=== PATIENT | male | born 1935 | race Caucasian/White ===

== ENCOUNTER 2021-10-13 16:46 | Inpatient (IN) ==
--- NOTE | 2021-10-13 17:12 | Emergency Department Note ---
HPI <Yuli Walker PA-C - Last Filed: 10/13/21 20:48> General Chief complaint: Trauma Stated complaint: Fall Time Seen by Provider: 10/13/21 16:50 Source: EMS Mode of arrival: EMS Limitations: no limitations History of Present Illness HPI Narrative: Narrative: 85-year-old male presents to the emergency department by EMS after ground-level fall at home. He had been working outside most of the day and had been feeling well and then suddenly felt lightheaded and knew that he was falling and then hit the ground. He hit the back of his head on the ground. He did not have loss of consciousness. At this time he has had pain only where he hit his head. He denies any vision changes, dizziness, vomiting. When EMS arrived at patient's house he was generally weak and could not stand up on his own. Patient denies any chest pain, cough, or shortness of breath. He does complain of mild right knee pain. This is been bothering him for a while. He has had a knee replacement. Related Data Previous Rx's Medication Instructions Recorded amlodipine 2.5 mg tablet 2.5 mg PO QDAY #90 tab 11/27/20 ramipril 5 mg capsule 5 mg PO QDAY #90 cap 07/29/21 Allergies Allergy/AdvReac Type Severity Reaction Status Date / Time No Known Drug Allergies Allergy Verified 10/13/21 16:52 Review of Systems <Yuli Walker PA-C - Last Filed: 10/13/21 20:48> ROS ROS Narrative: Narrative: All systems ED: reviewed and negative except as stated. 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 (Acute) Pain of right tibia (Acute) Medicare annual wellness visit, subsequent (Acute) History of hernia repair (Chronic ~1989) Psoriasis (Chronic) Other hammer toe(s) (acquired), 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 History of prostate cancer Hyperlipidemia Irritable bowel syndrome with diarrhea Kidney stones Medicare annual wellness visit, subsequent Mumps Other hammer toe(s) (acquired), right foot Prostate cancer Status post high-dose brachytherapy in July 2017. Continues to follow with urology, Dr. Breen, with PSA every 6 months. Psoriasis Man[facility] at [facility] [place]. He uses multiple strengths different topical steroid medications Surgical History History of hernia repair (~1989) History of prostate surgery (~2017) X'2 S/P cataract surgery (~03/2019) Family History Father Cancer of kidney Prostate cancer, Onset Age: 72 Daughter Mentally disabled Mother Ovarian cancer, Onset Age: 32 Social History Smoking Status: Former smoker Alcohol Intake Frequency: does not drink Substance Use: does not use Exam <Yuli Walker PA-C - Last Filed: 10/13/21 20:48> Narrative Narrative: Narrative: General Limitations: no limitations General appearance: Present alert and in no apparent distress Expanded Head Head image: 1. Cross shaped laceration just through the dermis. Edges are well approximated. 2. Eye Eye: Present PERRL and EOMI ENT ENT: Present mucous membranes moist Neck Neck: Present normal inspection, full ROM and other (Mild tenderness.) Respiratory Respiratory: Present normal lung sounds bilaterally, rales/crackles and wheezes Cardiovascular Cardiovascular: Present regular rate, normal rhythm and normal heart sounds Adbominal Abdominal: Present soft and normal bowel sounds; Absent tenderness Extremities Extremities: Present other (Well healed scar right knee, FROM, Nontender. Palpa ble dorsalis pedis pulses bilaterally, no calf pain or swelling) Back Back: Present normal inspection; Absent tenderness or spinous process tenderness Neurological Neurological: Present alert, oriented X3, CN II-XII intact and other (Equal strength BUE and BLE) Skin Skin: Present warm (WNL) and dry Course <Yuli Walker PA-C - Last Filed: 10/13/21 20:48> Vital Signs Vital signs: Vital Signs Temperature 97.9 F 10/13/21 16:47 Pulse Rate 70 10/13/21 16:47 Respiratory Rate 17 10/13/21 16:47 Blood Pressure 135/72 10/13/21 16:47 Pulse Oximetry (%) 93 10/13/21 16:47 Temperature 99 F 10/14/21 07:49 Pulse Rate 50 L 10/14/21 04:00 Respiratory Rate 16 10/14/21 07:49 Blood Pressure 111/60 10/14/21 07:49 Pulse Oximetry (%) 93 10/14/21 07:49 MDM <Yuli Walker PA-C - Last Filed: 10/13/21 20:48> MDM Narrative Medical decision making narrative: Narrative: Patient was sent quickly for CT of his head and neck. Labs, EKG, and chest x-ray were ordered. He was treated with IV fluids for hydration. Patient had some nausea and vomiting while in CT scan. He was treated with Zofran [address] scan of the head and neck were read as having no acute abnormalities. Labs were reviewed per the electronic health record. Laceration of the patient's head was cleaned with Hibiclens and saline. It was closed with vanita. Patient was given a tetanus immunization. EKG shows normal sinus rhythm with a rate of 47, no ST segment changes, normal intervals. Unfortunately the patient remained too weak to ambulate. Because of this I spoke with the hospitalist who has agreed to admit him. Lab Data Result diagrams: 10/14/21 05:52 10/14/21 05:52 Labs: Lab Results 10/13/21 10/13/21 10/13/21 Range/Units 17:31 17:31 18:21 WBC 10.4 (4.5-11.0) K/mcL RBC 4.35 L (4.63-6.08) M/mcL Hgb 14.1 (13.7-17.5) g/dL Hct 40.9 (40.1-51.0) % MCV 94.0 (80.0-100.0) fL MCH 32.4 (26.0-34.0) pg MCHC 34.5 (31.0-36.0) g/dL RDW 13.4 (11.5-14.5) % Plt Count 215 (140-440) K/mcL MPV 10.6 H (7.4-10.4) fL Neut % (Auto) 76.8 (38.0-78.0) % Lymph % (Auto) 15.4 L (15.5-49.0) % [place] % (Auto) 6.0 (1.0-12.0) % Eos % (Auto) 1.2 (0.0-7.0) % Baso % (Auto) 0.6 (0.0-2.0) % Lymph # (Auto) 1.60 (1.50-4.80) K/mcL [place] # (Auto) 0.63 (0.10-0.90) K/mcL Eos # (Auto) 0.12 (0.00-0.70) K/mcL Baso # (Auto) 0.06 (0.00-0.30) K/mcL Absolute Neutrophils 8.01 H (1.80-8.00) K/mcL Sodium 143 (133-145) mmol/L Potassium 3.7 (3.3-5.1) mmol/L Chloride 106 (96-108) mmol/L Carbon Dioxide 24 (22-30) mmol/L Anion Gap 13.0 (8.0-16.0) BUN 11 (8-23) mg/dL Creatinine 1.1 (0.7-1.2) mg/dL GFR Calculation 61 Glucose 150 H (70-105) mg/dL Calcium 9.1 (8.6-10.4) mg/dL Total Bilirubin 0.3 (0.1-1.0) mg/dL AST 18 (<40) U/L ALT 12 (<40) U/L Alkaline Phosphatase 63 (39-117) U/L Total Protein 6.6 (5.9-8.4) gm/dL Albumin 4.1 (3.2-5.2) gm/dL Globulin 2.5 (2.2-3.7) gm/dL Albumin/Globulin Ratio 1.6 (1.0-2.3) POC Troponin I 0 L (0.02-0.08) Procedures <Yuli Walker PA-C - Last Filed: 10/13/21 20:48> Laceration Laceration 1: Site: scalp Length of wound repaired (cm): 4 Description: Present stellate and clean Depth: simple, single layer Local Anesthetic: lidocaine 1% Amount of Anesthesia Used (mL): 5 Pre-repair: wound explored and irrigated extensively Skin layer closed with: vanita Number of sutures: 6 Discharge Plan Patient/Caregiver Discharge Instructions Pt seen by TIRE MOLD TESTER/PA only: Yes (Discussed patient with Dr. Ac) Clinical Impression: Weakness, Head injury Patient Disposition: Xfer As Inpt ([facility]) Condition: Fair Discharge Date/Time: 10/13/21 22:00
[2021-10-13] MEDS ORDERED: 0.9 % SODIUM CHLORIDE 1,000 ML IV ONE (17:18)
[2021-10-13] MEDS ORDERED: ONDANSETRON 4 MG/2 ML VIAL IV ONE (17:29)
[2021-10-13] MEDS ORDERED: ONDANSETRON 4 MG/2 ML VIAL ONE (17:39)
[2021-10-13 18:06] LABS: Basophils # (Auto) 0.06 K/mcL (0.00-0.30); Basophils % (Auto) 0.6 % (0.0-2.0); Eosinophils # (Auto) 0.12 K/mcL (0.00-0.70); Eosinophils % (Auto) 1.2 % (0.0-7.0); Hematocrit 40.9 % (40.1-51.0); Hemoglobin 14.1 g/dL (13.7-17.5); Lymphocytes % (Auto) 15.4 % (15.5-49.0); Mean Corpuscular HGB Conc 34.5 g/dL (31.0-36.0); Mean Platelet Volume 10.6 fL (7.4-10.4); Monocytes # (Auto) 0.63 K/mcL (0.10-0.90); Neutrophils % (Auto) 76.8 % (38.0-78.0); Platelet Count 215 K/mcL (140-440); RBC 4.35 M/mcL (4.63-6.08); Red Cell Distribution Width 13.4 % (11.5-14.5); WBC 10.4 K/mcL (4.5-11.0)
[2021-10-13 18:20] LABS: ALT/SGPT 12 U/L (<40); AST/SGOT 18 U/L (<40); Albumin 4.1 gm/dL (3.2-5.2); Albumin/Globulin Ratio 1.6 (1.0-2.3); Alkaline Phosphatase 63 U/L (39-117); Bilirubin,Total 0.3 mg/dL (0.1-1.0); Blood Urea Nitrogen 11 mg/dL (8-23); Calcium 9.1 mg/dL (8.6-10.4); Carbon Dioxide 24 mmol/L (22-30); Chloride 106 mmol/L (96-108); Globulin 2.5 gm/dL (2.2-3.7); Glomerular Filtration Rate 61; Glucose 150 mg/dL (70-105)
--- NOTE | 2021-10-13 18:30 | Cat Scan Report ---
CLINICAL INFORMATION: Trauma COMPARISON: None. TECHNIQUE: 2.5 mm helical slices were obtained in the skull base to vertex. Following reconstruction, axial reformatted images were reviewed at bone and parenchymal windows. The exam was performed using radiation dose optimization techniques including, but not limited to, automated exposure control, adjustment of the mA and/or kV according to patient size and use of iterative reconstruction technique. FINDINGS: The ventricles, sulci, fissures, and cisterns are symmetrically enlarged compatible with moderate age-related atrophy. No extra-axial fluid collections are identified. Mild patchy chronic ischemic changes, in the deep cerebral white matter, are expected for age. There is no hemorrhage, mass effect, or edema. Bone windows show no osseous abnormality. IMPRESSION: Moderate atrophy and chronic ischemic changes in the deep cerebral white matter-expected for age. No acute findings Incidental note: Moderate cerumen seen in the right external auditory meatus. Interpreted and Authenticated by: Jose Barrett 10/13/21
--- NOTE | 2021-10-13 18:31 | XRay Report ---
CLINICAL INFORMATION: Trauma-fall COMPARISON: 07/07/2017 TECHNIQUE: Portable FINDINGS: The heart size, mediastinum and pulmonary vessels are unremarkable. The lungs are clear. There are no effusions. The bones and soft tissues are within normal limits. IMPRESSION: Normal chest. Interpreted and Authenticated by: Jose Barrett 10/13/21
--- NOTE | 2021-10-13 18:57 | Cat Scan Report ---
CLINICAL INFORMATION: Trauma COMPARISON: None. TECHNIQUE: 0.625 mm helical slices were obtained from the skull base through the superior T2 end plate. Following reconstruction, 2.5 mm sagittal, coronal and axial reformations , with and without disc space angling, were processed. The exam was reviewed at bone and soft tissue windows. The exam was performed using radiation dose optimization techniques including, but not limited to, automated exposure control, adjustment of the mA and/or kV according to patient size and use of iterative reconstruction technique. FINDINGS: Sagittal and coronal reformatted images show the cervical spine is anatomically aligned. There is no fracture or other osseous abnormality. The cervical cord is normal in contour and caliber without focal lesion. The soft tissues are normal. The C2-3 and C3-4 disc levels are normal. At C4-5, mild central disc protrusion mildly impinges the anterior thecal sac. At C5-6, mild broad disc spur complex results in mild central canal and minimal bilateral IV foraminal narrowing At C6-7, mild broad disc protrusion minimally impinging the thecal sac The C7-T1 disc level is normal. IMPRESSION: No fracture or post traumatic change. Mild degeneration Interpreted and Authenticated by: Jose Barrett 10/13/21
[2021-10-13] MEDS ORDERED: DIPH,PERTUSS(ACELL),TET VAC/PF 0.5 ML SYRINGE IM ONE (20:44)
[2021-10-13] MEDS ORDERED: MAGNESIUM HYDROXIDE 30 ML ORAL.SUSP PO PRN (21:50)
[2021-10-13] MEDS ORDERED: IPRATROPIUM/ALBUTEROL 3 ML AMPUL.NEB NEB PRN (21:50)
[2021-10-13] MEDS ORDERED: PROCHLORPERAZINE 10 MG/2 ML VIAL IV PRN (21:50)
[2021-10-13] MEDS ORDERED: ACETAMINOPHEN W/CODEINE #3 1 TABLET PO PRN (21:50)
[2021-10-13] MEDS ORDERED: ACETAMINOPHEN 325 MG TABLET PO PRN (21:50)
[2021-10-13] MEDS ORDERED: ONDANSETRON 4 MG/2 ML VIAL IV PRN (21:50)
[2021-10-13] MEDS ORDERED: HYDROcodone/APAP 5/325MG TABLET PO PRN (21:50)
[2021-10-13] MEDS ORDERED: ONDANSETRON 4 MG ODT TABLET SL PRN (21:50)
[2021-10-13] MEDS ORDERED: MELATONIN 3 MG TABLET PO PRN (21:55)
--- NOTE | 2021-10-13 22:00 | Internal Med History&Physical ---
HPI History of Present Illness Patient information: Note initiated : 10/13/21 at 10:00 pm Service Date, if different from initiated Date: [] Patient: Juan Cantrell a 85 y/o M admitted on for Fall. Chief Complaint: Fall at home History of present illness: Mr. Cantrell is a 85 year old M Brought to the ER by the EMS following an episode of syncope This gentleman has history essential hypertension taking ramipril and amlodipine recently his medication dose was increased Patient was mowing the lawn all day today at home and by evening he was putting the grass onto the trash can and lost consciousness and fell backwards and hit his head Upon arrival patient had a 23 cm laceration on his back of the head which was sutured in the ED Underwent CT of the head which was unremarkable During my encounter patient was alert oriented answering questions back to his baseline according to the who was at the bedside His heart rate was irregular appears to be in atrial fibrillation which is new diagnosis for him No acute focal neuro deficit No history suggestive of any seizure episodes Patient appears to be very dehydrated Patient will be admitted for possible cardiac syncope versus vasovagal-plan is to do MRI telemetry monitoring and serial troponin Constitutional Constitutional: Present as per HPI EENT Eyes: Present as per HPI; Absent change in vision, discharge, floaters or loss of peripheral vision Ears: Absent decreased hearing, ear pain or tinnitus Nose, mouth and throat: Present dizziness; Absent change in voice, epistaxis, headache(s) or mouth lesions Cardiovascular Cardiovascular: Absent chest pain at rest, diaphoresis, edema, leg edema or orthopnea Respiratory Respiratory: Absent hemoptysis, snoring, chest congestion or pain with cough Gastrointestinal Gastrointestinal: Absent bloating, coffee ground emesis, diarrhea or early satiety Genitourinary Genitourinary: genital lesions, genital pain, testicular mass and testicular pain Musculoskeletal Musculoskeletal: Present muscle cramps; Absent atrophy or joint swelling Integumentary Integumentary: Present dry skin and lesions; Absent change in pigmentation or erythema Neurological Neurological: Absent burning sensations, disequilibrium, frequent falls, loss of vision, paresthesias, sensory deficit, tremor(s) or other visual disturbances Psychiatric Psychiatric: Absent anxiety, change in appetite, cravings or hallucinations PFSH PFSH All Active Problems (Updated 10/13/21 @ 20:48 by Yuli Walker PA-C) Weakness (Acute) Head injury (Acute) Age-related cognitive decline (Acute) Right hand pain (Acute) Fall (Acute) Facial pain (Acute) 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 (Acute) Pain of right tibia (Acute) Medicare annual wellness visit, subsequent (Acute) History of hernia repair (Chronic ~1989) Psoriasis (Chronic) Other hammer toe(s) (acquired), 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 History of prostate cancer Hyperlipidemia Irritable bowel syndrome with diarrhea Kidney stones Medicare annual wellness visit, subsequent Mumps Other hammer toe(s) (acquired), right foot Prostate cancer Status post high-dose brachytherapy in July 2017. Continues to follow with urology, Dr. Breen, with PSA every 6 months. Psoriasis Man[facility] Dr[facility] Ign[facility] at [facility] in [place]. He uses multiple strengths different topical steroid medications Surgical History History of hernia repair (~1989) History of prostate surgery (~2017) X'2 S/P cataract surgery (~03/2019) Family History Father Cancer of kidney Prostate cancer, Onset Age: 72 Daughter Mentally disabled Mother Ovarian cancer, Onset Age: 32 Social History marital status: smoking status: Former smoker smoking status stop date: 05/25/1964 alcohol intake frequency: does not drink substance use type: does not use MEDS/ALLERGIES Home Medications and Allergies Home Medications Medication Instructions Recorded Confirmed Type amlodipine 2.5 mg tablet 2.5 mg PO QDAY #90 tab 11/27/20 10/13/21 Rx ramipril 5 mg capsule 5 mg PO QDAY #90 cap 07/29/21 10/13/21 Rx Allergies Allergy/AdvReac Type Severity Reaction Status Date / Time No Known Drug Allergies Allergy Verified 10/13/21 16:52 EXAM Constitutional Vitals: Temp Pulse Resp BP Pulse Ox 97.9 F 56 L 19 127/68 93 10/13/21 16:47 10/13/21 21:25 10/13/21 21:25 10/13/21 21:16 10/13/21 21:25 General appearance: average body habitus, cooperative and mild distress Head Additional comments: 2x3 cm laceration back of the head Expanded Head Exam Head exam: Present abrasion and laceration Focused Head Exam Image: 1. Eye Eye exam: Present EOMI Pupils: Present PERRL ENT ENT exam: Present mucous membranes dry and normal exam Expanded ENT Exam Ear exam: Absent auricular hematoma, auricular trauma or external canal tenderness Throat exam: Absent post pharyngeal edema, post pharyngeal erythema, tonsillar e xudate or tonsillomegaly Neck Neck exam: Present full ROM and normal inspection; Absent lymphadenopathy or tenderness Expanded Neck Exam Neck exam: Absent anterior neck swelling, carotid bruit, tenderness or thyroid mass Respiratory Respiratory exam: Present normal respiratory exam; Absent accessory muscle use, respiratory distress or wheezes Cardiovascular Cardiovascular exam: Present bradycardia and irregular rhythm; Absent clicks, +S3, +S4 or systolic murmur GI/Abdominal GI/Abdominal exam: Present normal bowel sounds and soft; Absent distended, h ernia or mass Back Exam Back exam: Present normal inspection and rash noted; Absent CVA tenderness (L), CVA tenderness (R) or muscle spasm Expanded Neurological Exam Neurological exam: Absent ataxia, expressive aphasia, inattentive, memory loss- recent event, memory loss-remote event, protecting the airway, receptive aphasia, total aphasia or tremor Patient oriented to: Present person, place and time Speech: Absent anomia, expressive aphasia, garbled or receptive aphasia Cranial nerves: EOM's intact: Normal, facial palsy with forehead movement: Normal, facial palsy without forehead movement: Normal, facial sensation: Normal , gag reflex: Normal and nystagmus: Normal Cerebellar function: finger to nose: Normal and Romberg: Normal Upper motor neuron: Babinski sign: Normal, [place] neglect: Normal, pronator drift: Normal and sensory extinction: Normal Neuro motor strength exam: LUE: 5, RUE: 5, LLE: 5 and RLE: 5 Coma Scale Eye Opening: Spontaneous Coma Scale Motor Response: Obeys Commands Coma Scale Verbal Response: Oriented Coma Scale Total: 15 Psychiatric Psychiatric exam: Absent agitated, anxious or flat affect Skin Skin exam: Present abrasion and rash DATA Data Completed and Pending Labs: Labs from last 24 hours 10/13/21 10/13/21 10/13/21 18:21 17:31 17:31 WBC 10.4 RBC 4.35 L Hgb 14.1 Hct 40.9 MCV 94.0 MCH 32.4 MCHC 34.5 RDW 13.4 Plt Count 215 MPV 10.6 H Neut % (Auto) 76.8 Lymph % (Auto) 15.4 L [place] % (Auto) 6.0 Eos % (Auto) 1.2 Baso % (Auto) 0.6 Lymph # (Auto) 1.60 [place] # (Auto) 0.63 Eos # (Auto) 0.12 Baso # (Auto) 0.06 Absolute Neutrophils 8.01 H Sodium 143 Potassium 3.7 Chloride 106 Carbon Dioxide 24 Anion Gap 13.0 BUN 11 Creatinine 1.1 GFR Calculation 61 Glucose 150 H Calcium 9.1 Total Bilirubin 0.3 AST 18 ALT 12 Alkaline Phosphatase 63 Total Protein 6.6 Albumin 4.1 Globulin 2.5 Albumin/Globulin Ratio 1.6 POC Troponin I 0 L A/P Narrative A/P Narrative: Vasovagal syncope versus cardiac syncope Dehydration Essential hypertension Atrial fibrillation rate controlled-new diagnosis Bradycardia Plan of Treatment: Possible vasovagal syncope Trend the troponin Cardiac monitoring Outpatient cardiology work-up if troponin remains negative and overnight cardiac monitoring remained negative Consider beta-sue if his heart rate uncontrolled IV hydration MRI to look for any stroke If the work-up is negative need outpatient cardiology follow-up Time Spent With Patient Time: Total time spent is greater than 50% in coordination of care (as documented) at patient's floor/unit and/or counseling patient: Total time spent with greater than 50% in coordination of care (as documented) at patient's floor/unit and/or counseling patient:: Greater than 70 minutes Critical Care Time: No
[2021-10-13] MEDS: 0.9 % SODIUM CHLORIDE 1,000 ML IV SCH (23:02)
[2021-10-13] MEDS: 0.9 % SODIUM CHLORIDE 10 ML SYRINGE IV SCH (23:03)
[2021-10-14] MEDS: 0.9 % SODIUM CHLORIDE 10 ML SYRINGE IV SCH ×3 (05:24→21:47)
[2021-10-14 06:57] LABS: ALT/SGPT 12 U/L (<40); AST/SGOT 15 U/L (<40); Albumin 3.5 gm/dL (3.2-5.2); Albumin/Globulin Ratio 1.5 (1.0-2.3); Alkaline Phosphatase 55 U/L (39-117); Bilirubin,Total 0.5 mg/dL (0.1-1.0); Blood Urea Nitrogen 11 mg/dL (8-23); Calcium 8.5 mg/dL (8.6-10.4); Carbon Dioxide 22 mmol/L (22-30); Chloride 108 mmol/L (96-108); Globulin 2.4 gm/dL (2.2-3.7); Glomerular Filtration Rate 78; Glucose 121 mg/dL (70-105)
--- NOTE | 2021-10-14 07:10 | EKG ---
[facility] Test Date: 2021-10-13 Pat Name: Juan Cantrell Department: ED Room: Gender: Male Assistant Librarian: LENNY : 1935 Requested By: Yuli Walker Order Number: [id number] Reading MD: Joseph Welch Measurements Intervals [place] Rate: 47 P: 44 CA: 169 QRS: -17 QRSD: 87 T: 49 QT: 483 QTc: 427 Interpretive Statements Sinus bradycardia Abnormal R-wave progression, early transition LVH with secondary repolarization abnormality Electronically Signed On 10-14-2021 7:10:05 PDT by Joseph Welch /store/M0/[id number].pdf
[2021-10-14 07:19] LABS: Thyroid Stimulating Hormone 0.35 uIU/mL (0.27-5.01)
[2021-10-14] MEDS: PANTOPRAZOLE 40 MG TABLET PO SCH (07:19)
[2021-10-14 07:26] LABS: Basophils # (Auto) 0.03 K/mcL (0.00-0.30); Basophils % (Auto) 0.3 % (0.0-2.0); Eosinophils # (Auto) 0.03 K/mcL (0.00-0.70); Eosinophils % (Auto) 0.3 % (0.0-7.0); Hematocrit 38.8 % (40.1-51.0); Hemoglobin 13.2 g/dL (13.7-17.5); Lymphocytes # (Auto) 1.24 K/mcL (1.50-4.80); Lymphocytes % (Auto) 11.8 % (15.5-49.0); Mean Cell Volume 94.9 fL (80.0-100.0); Monocytes # (Auto) 0.64 K/mcL (0.10-0.90); Monocytes % (Auto) 6.1 % (1.0-12.0); Neutrophils % (Auto) 81.5 % (38.0-78.0); RBC 4.09 M/mcL (4.63-6.08); Red Cell Distribution Width 13.4 % (11.5-14.5); WBC 10.5 K/mcL (4.5-11.0)
[2021-10-14] MEDS ORDERED: amLODIPine 5 MG TABLET PO SCH (09:00)
[2021-10-14] MEDS ORDERED: RAMIPRIL 2.5 MG CAPSULE PO SCH (09:00)
[2021-10-14] MEDS: DOCUSATE SODIUM 100 MG CAPSULE PO SCH ×2 (09:07→21:46)
[2021-10-14] MEDS: ASPIRIN 81 MG TAB.CHEW CHEWED SCH (09:07)
--- NOTE | 2021-10-14 14:59 | Magnetic Resonance Report ---
CLINICAL INFORMATION: Trauma with weakness nausea and vomiting COMPARISON: Head CT 10/11/2020 TECHNIQUE:Sagittal T1 FLAIR, axial late T2 FLAIR propeller, diffusion, and ADC images were acquired. FINDINGS: The ventricles, sulci, fissures and cisterns are mildly enlarged compatible with moderate age-related atrophy extra-axial fluid collections or mass are appreciated. Patchy chronic senescent ischemic changes in the cerebral white matter expected for age. A 3 mm region of restricted diffusion is seen in the subcortical white matter of the right occipital lobe compatible with an acute nonhemorrhagic lacunar infarct. The signal void in intracerebral arteries, extra-axial cranial nerves, pituitary, orbits and paranasal sinuses are all normal. IMPRESSION: Moderate atrophy and chronic ischemic changes in the cerebral white matter-expected for age. 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
[2021-10-14] MEDS ORDERED: hydrALAZINE 20 MG/ML VIAL IV PRN (15:19)
[2021-10-14] MEDS: 0.9 % SODIUM CHLORIDE 1,000 ML IV SCH (15:21)
[2021-10-14] MEDS ORDERED: SENNOSIDES 1 TABLET PO SCH (21:00)
[2021-10-15] MEDS: 0.9 % SODIUM CHLORIDE 10 ML SYRINGE IV SCH (04:13)
[2021-10-15] MEDS: 0.9 % SODIUM CHLORIDE 1,000 ML IV SCH (05:15)
[2021-10-15 06:30] LABS: Basophils # (Auto) 0.03 K/mcL (0.00-0.30); Basophils % (Auto) 0.3 % (0.0-2.0); Eosinophils # (Auto) 0.07 K/mcL (0.00-0.70); Eosinophils % (Auto) 0.8 % (0.0-7.0); Hematocrit 37.9 % (40.1-51.0); Hemoglobin 12.8 g/dL (13.7-17.5); Lymphocytes # (Auto) 1.05 K/mcL (1.50-4.80); Lymphocytes % (Auto) 11.6 % (15.5-49.0); Mean Cell Volume 96.7 fL (80.0-100.0); Mean Corpuscular HGB Conc 33.8 g/dL (31.0-36.0); Mean Platelet Volume 10.7 fL (7.4-10.4); Monocytes # (Auto) 0.56 K/mcL (0.10-0.90); Monocytes % (Auto) 6.2 % (1.0-12.0); Neutrophils % (Auto) 81.1 % (38.0-78.0); Platelet Count 178 K/mcL (140-440); RBC 3.92 M/mcL (4.63-6.08); Red Cell Distribution Width 13.7 % (11.5-14.5)
[2021-10-15 07:00] LABS: ALT/SGPT 11 U/L (<40); AST/SGOT 17 U/L (<40); Albumin 3.4 gm/dL (3.2-5.2); Albumin/Globulin Ratio 1.5 (1.0-2.3); Alkaline Phosphatase 50 U/L (39-117); Bilirubin,Total 0.4 mg/dL (0.1-1.0); Blood Urea Nitrogen 14 mg/dL (8-23); Calcium 8.3 mg/dL (8.6-10.4); Carbon Dioxide 23 mmol/L (22-30); Chloride 111 mmol/L (96-108); Globulin 2.2 gm/dL (2.2-3.7); Glomerular Filtration Rate 68; Glucose 119 mg/dL (70-105)
[2021-10-15] MEDS: PANTOPRAZOLE 40 MG TABLET PO SCH (07:17)
[2021-10-15] MEDS: ASPIRIN 81 MG TAB.CHEW CHEWED SCH (08:37)
[2021-10-15] MEDS: DOCUSATE SODIUM 100 MG CAPSULE PO SCH (08:37)
[2021-10-15] MEDS ORDERED: ATORVASTATIN 40 MG TABLET PO SCH ×2 (09:00→21:00)
--- NOTE | 2021-10-15 11:32 | Discharge Summary ---
Discharge Provider Provider IMPORTANT FOLLOW-UP INFORMATION FOR PCP: Patient information: Note initiated : 10/15/21 at 11:28 am Service Date, if different from initiated Date: [] Patient: Juan Cantrell 85 y/o M admitted on 10/13/21 for Fall. Chief Complaint: [] Date of admission: 10/13/21 22:00 Discharge date: 10/15/21 Primary care physician: Jose Bates DO Consults: 10/13/21 Consult to Physician [CONS] Stat Comment: Consulting Provider: Bea Dahl Reason For Exam: Physician to Consult COURSE Hospital Course Hospital course: Chief Complaint: Fall at home Mr. Cantrell is a 85 year old M Brought to the ER by the EMS following an episode of syncope This gentleman has history essential hypertension taking ramipril and amlodipine recently his medication dose was increased Patient was mowing the lawn at home and by evening he was putting the grass onto the trash can and lost consciousness and fell backwards and hit his head Upon arrival patient had a 2x3 cm laceration on his back of the head which was sutured in the ED.Underwent CT of the head which was unremarkable During my encounter patient was alert oriented answering questions back to his baseline according to the who was at the bedside His heart rate was irregular appears to be in atrial fibrillation which is new diagnosis for him No acute focal neuro deficit during my initial encounter. No history suggestive of any seizure episodes. Patient appears to be very dehydrated. Patient will be admitted for possible cardiac syncope versus vasovagal-plan is to do MRI telemetry monitoring and serial troponin Patient was admitted and telemetry monitoring underwent MRI and MRI showed a 3 mm subcortical occipital stroke acute or subacute as per the radiology. But patient does not have any focal symptoms and the area of involvement is a less dense area of the brain. Last 36 hours patient being bradycardic mostly in sinus bradycardia occasionally he had episodes of atrial fibrillation rate controlled. Last night patient heart rate go down into the 36-38 range. Patient has been complaining of dizziness and unable to go to the bathroom or walk. He is otherwise very healthy active man. His garnett room worker rhythm strip shows a prolonged pause was 1.8 but mostly in the 1.2-1.6 range in sinus rhythm. Based on my assessment this gentleman most likely has sick sinus syndrome. He is not on any medication that can cause bradycardia he was on amlodipine which I held since admit. I do not think his stroke was the cause of syncope has syncope episode is typical for cardiac and now having active dizziness with a heart rate in the 30s he will benefit from pacemaker placement Discussed with the patient and patient needs to be transferred to higher level of care for consideration of pacemaker placement. Discussed with the [facility] pastoral worker Dr. Santiago and he kindly agreed to accept the patient for further evaluation. Patient's troponin being negative, echocardiogram done results are pending patient was started on atorvastatin 40 mg and continued aspirin did not add a second antiplatelet agent because of the laceration of his scalp and fall Sinus bradycardia -prolonged pause Sick sinus syndrome Patient admitted with a episode of syncope lasted for about 10 minutes History typical for cardiac syncope Initial work-up and troponin negative EKG did not show any ischemic changes showed sinus bradycardia gluer and slicer hand patient had episodes of atrial fibrillation rate controlled Patient being bradycardic for the last 36 hours and the lowest is 36 and the longest pause is 1.8 seconds mostly in the 1.5 seconds range Patient having active dizziness. He is otherwise healthy man do a lot of yard works at home With a heart rate being in the 30s and had an episode of serious syncope. He would definitely benefit from pacemaker placement likely sick sinus syndrome Discussed with the [facility] pastoral worker Dr. Santiago and he kindly agreed evaluate the patient for further management New stroke Patient's MRI showed subcortical 3 mm occipital area stroke acute versus subacute-discussed with the radiologist This is in a less dense area of the brain and no focal deficit upon evaluation I do not think this is causing the syncope. Patient's history was typical for cardiac syncope Started him on atorvastatin 40 mg and continued aspirin Did not start him on a second antiplatelet due to the laceration of the scalp and fall Scalp laceration Suture in the ED Outpatient follow-up Essential hypertension Patient was on ramipril and amlodipine Held about the blood pressure medication due to dizziness and syncope Monitored blood pressure target blood pressure was around 160 due to the stroke Discharge diagnosis: Sick sinus syndrome Time Spent with Patient Time attestation: Total time spent providing and/or coordinating discharge services: EXAM Constitutional Vitals: Temp Pulse Resp BP Pulse Ox 97.1 F 43 L 14 141/72 91 10/15/21 07:25 10/15/21 07:25 10/15/21 07:25 10/15/21 07:25 10/15/21 07:25 General appearance: mild distress Head Additional comments: 2x3 cm scalp laceration no discharge Expanded Head Exam Head exam: Present abrasion and laceration Eye Eye exam: Absent conjunctival injection, EOMI, periorbital swelling or scleral icterus ENT ENT exam: Present mucous membranes moist and normal oropharynx Expanded ENT Exam Ear exam: Absent auricular hematoma or auricular trauma Neck Neck exam: Present full ROM and normal inspection Expanded Neck Exam Neck exam: Absent anterior neck swelling, carotid bruit or tenderness Respiratory Respiratory exam: Present normal respiratory exam; Absent accessory muscle use or respiratory distress Cardiovascular Cardiovascular exam: Present bradycardia; Absent irregular rhythm, JVD, +S3 or +S4 GI/Abdominal GI/Abdominal exam: Present normal bowel sounds and soft; Absent distended Neurological Exam Neurological exam: Present alert, CN II-XII intact, oriented X3 and reflexes normal; Absent altered or motor sensory deficit Discharge Data Data Completed and Pending Labs on day of discharge: Labs from last 24 hours 10/15/21 10/15/21 10/14/21 05:12 05:12 12:40 WBC 9.0 RBC 3.92 L Hgb 12.8 L Hct 37.9 L MCV 96.7 MCH 32.7 MCHC 33.8 RDW 13.7 Plt Count 178 MPV 10.7 H Neut % (Auto) 81.1 H Lymph % (Auto) 11.6 L [place] % (Auto) 6.2 Eos % (Auto) 0.8 Baso % (Auto) 0.3 Lymph # (Auto) 1.05 L [place] # (Auto) 0.56 Eos # (Auto) 0.07 Baso # (Auto) 0.03 Absolute Neutrophils 7.33 Sodium 141 Potassium 4.1 Chloride 111 H Carbon Dioxide 23 Anion Gap 7.0 L BUN 14 Creatinine 1.0 GFR Calculation 68 Glucose 119 H Calcium 8.3 L Magnesium 2.0 Total Bilirubin 0.4 AST 17 ALT 11 Alkaline Phosphatase 50 Troponin T < 0.01 Total Protein 5.6 L Albumin 3.4 Globulin 2.2 Albumin/Globulin Ratio 1.5 Discharge Plan Patient/Caregiver Discharge Instructions Activity: other Diet: NPO Prescriptions: Discontinued amlodipine 2.5 mg tablet 2.5 mg PO QDAY Qty: 90 3RF No Action ramipril 5 mg capsule 5 mg PO QDAY Qty: 90 3RF Follow Up Plan Follow up with: Jose Bates DO [Primary Care Provider] - Patient Disposition: [facility] Plan Goals: Follow-up with cardiology to establish care and work-up syncope Follow-up with the primary care to follow-up on the pending echocardiogram result Hospital Course: Chief Complaint: Fall at home Mr. Cantrell is a 85 year old M Brought to the ER by the EMS following an episode of syncope This gentleman has history essential hypertension taking ramipril and amlodipine recently his medication dose was increased Patient was mowing the lawn at home and by evening he was putting the grass onto the trash can and lost consciousness and fell backwards and hit his head Upon arrival patient had a 2x3 cm laceration on his back of the head which was sutured in the ED.Underwent CT of the head which was unremarkable During my encounter patient was alert oriented answering questions back to his baseline according to the who was at the bedside His heart rate was irregular appears to be in atrial fibrillation which is new diagnosis for him No acute focal neuro deficit during my initial encounter. No history suggestive of any seizure episodes. Patient appears to be very dehydrated. Patient will be admitted for possible cardiac syncope versus vasovagal-plan is to do MRI telemetry monitoring and serial troponin Patient was admitted and telemetry monitoring underwent MRI and MRI showed a 3 mm subcortical occipital stroke acute or subacute as per the radiology. But patient does not have any focal symptoms and the area of involvement is a less dense area of the brain. Last 36 hours patient being bradycardic mostly in sinus bradycardia occasionally he had episodes of atrial fibrillation rate controlled. Last night patient heart rate go down into the 36-38 range. Patient has been complaining of dizziness and unable to go to the bathroom or walk. He is otherwise very healthy active man. His garnett room worker rhythm strip shows a prolonged pause was 1.8 but mostly in the 1.2-1.6 range in sinus rhythm. Based on my assessment this gentleman most likely has sick sinus syndrome. He is not on any medication that can cause bradycardia he was on amlodipine which I held since admit. I do not think his stroke was the cause of syncope has syncope episode is typical for cardiac and now having active dizziness with a heart rate in the 30s he will benefit from pacemaker placement Discussed with the patient and patient needs to be transferred to higher level of care for consideration of pacemaker placement. Discussed with the [facility] pastoral worker Dr. Santiago and he kindly agreed to accept the patient for further evaluation. Patient's troponin being negative, echocardiogram done results are pending patient was started on atorvastatin 40 mg and continued aspirin did not add a second antiplatelet agent because of the laceration of his scalp and fall Sinus bradycardia -prolonged pause cardiac syncope Patient admitted with a episode of syncope lasted for about 10 minutes History typical for cardiac syncope Initial work-up and troponin negative EKG did not show any ischemic changes showed sinus bradycardia gluer and slicer hand patient had episodes of atrial fibrillation rate controlled Patient being bradycardic for the last 36 hours and the lowest is 36 and the longest pause is 1.8 seconds mostly in the 1.5 seconds range Patient having active dizziness. He is otherwise healthy man do a lot of yard works at home With a heart rate being in the 30s and had an episode of serious syncope. He would definitely benefit from pacemaker placement likely sick sinus syndrome Discussed with the [facility] pastoral worker Dr. Santiago and he kindly agreed evaluate the patient for further management New stroke Patient's MRI showed subcortical 3 mm occipital area stroke acute versus subacute-discussed with the radiologist This is in a less dense area of the brain and no focal deficit upon evaluation I do not think this is causing the syncope. Patient's history was typical for cardiac syncope Started him on atorvastatin 40 mg and continued aspirin Did not start him on a second antiplatelet due to the laceration of the scalp and fall Scalp laceration Suture in the ED Outpatient follow-up Essential hypertension Patient was on ramipril and amlodipine Held about the blood pressure medication due to dizziness and syncope Monitored blood pressure target blood pressure was around 160 due to the stroke Prognosis: Fair Rehab Potential: Fair I certify that the patient requires SNF services: No Overall status at discharge: patient is back to baseline Discharge Orders: Discharge Order (Routine); Ordered 10/15/21 Ordered By: Bea Dahl
== END 2021-10-15 14:06 | disposition short-term general hospital (02) | DRG 308 ==
LOC: ED 16:46 → MEDSUR 16:46
PROVIDERS: ADMIT Internal Medicine; ATTEND Internal Medicine

== ENCOUNTER 2022-07-06 13:05 | Inpatient (IN) ==
[2022-07-06] MEDS ORDERED: ONDANSETRON 4 MG/2 ML VIAL IV ONE (13:26)
[2022-07-06] MEDS ORDERED: LACTATED RINGERS 1,000 ML IV ONE (13:26)
[2022-07-06] MEDS ORDERED: ACETAMINOPHEN 325 MG TABLET PO ONE (13:34)
[2022-07-06 13:52] LABS: POC Calcium, Ionized 1.13 (1.16-1.32); POC Creatinine 0.9 (0.6-1.2); POC Potassium 3.9 (3.3-5.1)
[2022-07-06 14:06] LABS: Basophils # (Auto) 0.06 K/mcL (0.00-0.30); Basophils % (Auto) 0.6 % (0.0-2.0); Eosinophils # (Auto) 0 K/mcL (0.00-0.70); Eosinophils % (Auto) 0 % (0.0-7.0); Hematocrit 41.8 % (40.1-51.0); Hemoglobin 14.4 g/dL (13.7-17.5); Lymphocytes % (Auto) 7.3 % (15.5-49.0); Mean Cell Volume 94.8 fL (80.0-100.0); Mean Corpuscular HGB Conc 34.4 g/dL (31.0-36.0); Mean Platelet Volume 10.9 fL (8.8-12.5); Monocytes % (Auto) 9.3 % (1.0-12.0); Neutrophils % (Auto) 82.4 % (38.0-78.0); Platelet Count 188 K/mcL (140-440); RBC 4.41 M/mcL (4.63-6.08); Red Cell Distribution Width 13.2 % (11.5-14.5); WBC 9.7 K/mcL (4.5-11.0)
--- NOTE | 2022-07-06 14:18 | XRay Report ---
INDICATION: FEVER UNCLEAR SOURCE TECHNIQUE: AP portable semiupright chest x-ray COMPARISON: Previous chest x-rays dated 10/13/2021, 07/07/2017, 03/03/2008 FINDINGS: Lungs:Lungs are negative. No focal pulmonary parenchymal infiltrate or mass Heart, vascular:No significant cardiomegaly. Pulmonary vascularity is normal. No pulmonary edema or pulmonary congestion Mediastinum, kendall:No mediastinal widening. No hilar mass Pleura:No pleural fluid. No pleural-based mass or calcification Skeletal:Negative. IMPRESSION: Negative AP chest x-ray Interpreted and Authenticated by: Jose Villanueva 07/06/22
[2022-07-06] MEDS ORDERED: OSELTAMIVIR PHOSPHATE 75 MG CAPSULE PO ONE (14:40)
--- NOTE | 2022-07-06 14:43 | Emergency Department Note ---
HPI General Chief complaint: Weakness Stated complaint: weakness Time Seen by Provider: 07/06/22 13:08 Source: EMS Mode of arrival: EMS Limitations: physical limitation History of Present Illness HPI Narrative: Narrative: This is a 86-year-old male otherwise healthy presents to the emergency department with vomiting, fevers and altered mentation. History is obtained from EMS report, limited from patient given his current status. reports that yesterday he was weak and fell to the ground he did not hit his head EMS was called to help get him up. Today the patient has been confused unable to stand, febrile. EMS was called she was sent here for further evaluation. The states that a few days ago she had a sore throat but had recovered quickly without any major issues. There has been no other sick contacts. No diarrhea. Has been nonbloody. Related Data Home Medications Medication Instructions Recorded Confirmed aspirin 81 mg chewable tablet 81 mg PO QDAY 10/28/21 07/09/22 Previous Rx's Medication Instructions Recorded amlodipine 2.5 mg tablet 2.5 mg PO QDAY #90 tabs 01/20/22 ramipril 5 mg capsule 5 mg PO QDAY #90 caps 01/20/22 atorvastatin 40 mg tablet 40 mg PO QHS #90 tabs 06/16/22 Allergies Allergy/AdvReac Type Severity Reaction Status Date / Time No Known Drug Allergies Allergy Verified 07/06/22 13:19 Review of Systems ROS ROS Narrative: Narrative: All systems ED: reviewed and negative except as stated. [facility] Narrative Patient History Narrative: Narrative: Medical/Surgical/Family History All Active Problems (Updated 07/10/22 @ 07:07 by Miguelangel Varghese MD) COVID-19 (Acute) Influenza A (Acute) Stage II pressure ulcer of sacral region (Acute) Acute deep vein thrombosis (DVT) of left lower extremity (Acute) Edema of left lower extremity (Acute) CVA (cerebral vascular accident) (Acute) Arrhythmia (Acute) Sinus bradycardia (Acute) Syncope and collapse (Acute) Weakness (Acute) Head injury (Acute) Age-related cognitive decline (Acute) Right hand pain (Acute) Fall (Acute) Facial pain (Acute) 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 (Acute) Pain of right tibia (Acute) Medicare annual wellness visit, subsequent (Acute) History of hernia repair (Chronic ~1989) Psoriasis (Chronic) Other hammer toe(s) (acquired), 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 History of prostate cancer Hyperlipidemia Irritable bowel syndrome with diarrhea Kidney stones Medicare annual wellness visit, subsequent Mumps Other hammer toe(s) (acquired), right foot Prostate cancer Status post high-dose brachytherapy in July 2017. Continues to follow with urology, Dr. Breen, with PSA every 6 months. Psoriasis Man[facility] Dr[facility] at [facility] [place]. He uses multiple strengths different topical steroid medications Surgical History History of hernia repair (~1989) History of prostate surgery (~2017) X'2 S/P cataract surgery (~03/2019) Family History Father Cancer of kidney Prostate cancer, Onset Age: 72 Daughter Mentally disabled Mother Ovarian cancer, Onset Age: 32 Social History Smoking Status: Former smoker Alcohol Intake Frequency: does not drink Substance Use: does not use Exam Narrative Narrative: Narrative: Vital signs noted General: Somnolent but easily arousable appears acutely ill HEENT: NCAT PERRL EOMI. No conjunctivitis. Membranes moist. Neck: Supple, trachea midline Cardiovascular: RRR. No murmur. No rubs. No gallops. Respiratory: No respiratory distress. Breath sounds equal. Lungs clear. Gastrointestinal: Soft. No tenderness Musculoskeletal: No pain. No soft tissue swelling. Good ROM. No signs injury Skin: Warm. Dry. No rash Neurologic: Alert and oriented x3 moves all extremities equally and fully, speech is fluent face is symmetric General Limitations: physical limitation Course Vital Signs Vital signs: Vital Signs Temperature 101.5 F H 07/06/22 13:16 Pulse Rate 85 07/06/22 13:16 Respiratory Rate 18 07/06/22 13:16 Blood Pressure 155/75 07/06/22 13:16 Pulse Oximetry (%) 92 07/06/22 13:16 Oxygen Delivery Method Room Air 07/06/22 13:16 Temperature 98.0 F 07/09/22 17:05 Pulse Rate 56 L 07/09/22 17:05 Respiratory Rate 18 07/09/22 17:05 Blood Pressure 149/67 07/09/22 17:05 Pulse Oximetry (%) 95 07/09/22 17:05 Oxygen Delivery Method Room Air 07/09/22 17:05 Oxygen Flow Rate (L/min) 0.5 07/07/22 22:50 MDM MDM Narrative Medical decision making narrative: Narrative: Patient presents to the emergency department with fevers nausea vomiting altered mentation. He is protecting his airway he otherwise has no specific complaints. History is obtained from patient and his and EMS report. His CBC does not show any evidence of leukocytosis, his chemistry is without significant or explanatory derangements I have reviewed all of these labs urinalysis not consistent with infection. His COVID and influenza a test is positive patient was given Tamiflu in the emergency department he was also given 1 L of intravenous fluids and 4 mg of Zofran. Given patient's age multiple viral infections inability to care for himself acutely or his 's ability to care for him have spoke with the hospitalist who has agreed to admit the patient for antivirals IV fluid repletion and oxygen monitoring. Lab Data 07/06/22 13:25 Labs: Lab Results 07/06/22 07/06/22 07/06/22 Range/Units 13:25 13:25 13:25 WBC 9.7 (4.5-11.0) K/mcL RBC 4.41 L (4.63-6.08) M/mcL Hgb 14.4 (13.7-17.5) g/dL Hct 41.8 (40.1-51.0) % POC Hct (41-55) MCV 94.8 (80.0-100.0) fL MCH 32.7 (26.0-34.0) pg MCHC 34.4 (31.0-36.0) g/dL RDW 13.2 (11.5-14.5) % Plt Count 188 (140-440) K/mcL MPV 10.9 (8.8-12.5) fL Immature Gran % (Auto) 0.4 (0.0-0.5) % Neut % (Auto) 82.4 H (38.0-78.0) % Lymph % (Auto) 7.3 L (15.5-49.0) % Hendricks % (Auto) 9.3 (1.0-12.0) % Eos % (Auto) 0 (0.0-7.0) % Baso % (Auto) 0.6 (0.0-2.0) % Lymph # (Auto) 0.70 L (1.50-4.80) K/mcL Hendricks # (Auto) 0.90 (0.10-0.90) K/mcL Eos # (Auto) 0 (0.00-0.70) K/mcL Baso # (Auto) 0.06 (0.00-0.30) K/mcL Immature Gran # 0.04 (0.00-0.05) K/mcl Absolute Neutrophils 7.95 (1.80-8.00) K/mcL POC VBG pH (7.32-7.42) POC VBG pCO2 at Temp (41-51) POC VBG pO2 (25-40) POC VBG HCO3 (24-28) POC VBG Total CO2 (25-29) POC Venous O2 Sat (40-70) POC VBG Base Excess (-2-2) VBG Lactic Acid (0.5-2) POC Sodium (133-145) POC Potassium (3.3-5.1) POC Chloride (96-108) POC Total CO2 (22-30) POC BUN (6-20) POC Creatinine (0.6-1.2) POC Glucose (70-105) POC WB Ioniz Calcium (1.16-1.32) Total Bilirubin 0.7 (0.1-1.0) mg/dL Direct Bilirubin < 0.2 (0-0.3) mg/dL AST 15 (<40) U/L ALT 13 (<40) U/L Alkaline Phosphatase 82 (39-117) U/L Total Protein 6.9 (5.9-8.4) gm/dL Albumin 4.1 (3.2-5.2) gm/dL Globulin 2.8 (2.2-3.7) gm/dL Lipase 15 (7-60) U/L Procalcitonin 0.12 H (<0.10) ng/mL Urine Color Urine Appearance (Clear) Urine pH (5.0-9.0) Ur Specific Cumming (1.000-1.035) Urine Protein (Negative) mg/dL Urine Glucose (UA) (Negative) mg/dL Urine Ketones (Negative) mg/dL Urine Occult Blood (Negative) kaylie/mcL Urine Nitrate (Negative) Urine Bilirubin (Negative) mg/dL Urine Urobilinogen mg/dL Ur Leukocyte Esterase (Negative) /uL Urine RBC (0-3) /hpf Urine WBC (0-4) /hpf Ur Squamous Epith Cells (0-4) /hpf Urine Bacteria (0) /hpf Urine Mucus (None) /hpf Ur Culture Indicated? POC Troponin I (0.00-0.08) 07/06/22 07/06/22 07/06/22 Range/Units 13:37 13:38 13:39 WBC (4.5-11.0) K/mcL RBC (4.63-6.08) M/mcL Hgb (13.7-17.5) g/dL Hct (40.1-51.0) % POC Hct 42.0 (41-55) MCV (80.0-100.0) fL MCH (26.0-34.0) pg MCHC (31.0-36.0) g/dL RDW (11.5-14.5) % Plt Count (140-440) K/mcL MPV (8.8-12.5) fL Immature Gran % (Auto) (0.0-0.5) % Neut % (Auto) (38.0-78.0) % Lymph % (Auto) (15.5-49.0) % Hendricks % (Auto) (1.0-12.0) % Eos % (Auto) (0.0-7.0) % Baso % (Auto) (0.0-2.0) % Lymph # (Auto) (1.50-4.80) K/mcL Hendricks # (Auto) (0.10-0.90) K/mcL Eos # (Auto) (0.00-0.70) K/mcL Baso # (Auto) (0.00-0.30) K/mcL Immature Gran # (0.00-0.05) K/mcl Absolute Neutrophils (1.80-8.00) K/mcL POC VBG pH 7.41 (7.32-7.42) POC VBG pCO2 at Temp 36.6 L (41-51) POC VBG pO2 38 (25-40) POC VBG HCO3 23.1 L (24-28) POC VBG Total CO2 24.0 L (25-29) POC Venous O2 Sat 73.0 H (40-70) POC VBG Base Excess -2.0 (-2-2) VBG Lactic Acid 1.6 (0.5-2) POC Sodium 138 (133-145) POC Potassium 3.9 (3.3-5.1) POC Chloride 103 (96-108) POC Total CO2 24.0 (22-30) POC BUN 12 (6-20) POC Creatinine 0.9 (0.6-1.2) POC Glucose 142 H (70-105) POC WB Ioniz Calcium 1.13 L (1.16-1.32) Total Bilirubin (0.1-1.0) mg/dL Direct Bilirubin (0-0.3) mg/dL AST (<40) U/L ALT (<40) U/L Alkaline Phosphatase (39-117) U/L Total Protein (5.9-8.4) gm/dL Albumin (3.2-5.2) gm/dL Globulin (2.2-3.7) gm/dL Lipase (7-60) U/L Procalcitonin (<0.10) ng/mL Urine Color Urine Appearance (Clear) Urine pH (5.0-9.0) Ur Specific Cumming (1.000-1.035) Urine Protein (Negative) mg/dL Urine Glucose (UA) (Negative) mg/dL Urine Ketones (Negative) mg/dL Urine Occult Blood (Negative) kaylie/mcL Urine Nitrate (Negative) Urine Bilirubin (Negative) mg/dL Urine Urobilinogen mg/dL Ur Leukocyte Esterase (Negative) /uL Urine RBC (0-3) /hpf Urine WBC (0-4) /hpf Ur Squamous Epith Cells (0-4) /hpf Urine Bacteria (0) /hpf Urine Mucus (None) /hpf Ur Culture Indicated? POC Troponin I < 0.02 (0.00-0.08) 07/06/22 Range/Units 15:35 WBC (4.5-11.0) K/mcL RBC (4.63-6.08) M/mcL Hgb (13.7-17.5) g/dL Hct (40.1-51.0) % POC Hct (41-55) MCV (80.0-100.0) fL MCH (26.0-34.0) pg MCHC (31.0-36.0) g/dL RDW (11.5-14.5) % Plt Count (140-440) K/mcL MPV (8.8-12.5) fL Immature Gran % (Auto) (0.0-0.5) % Neut % (Auto) (38.0-78.0) % Lymph % (Auto) (15.5-49.0) % Hendricks % (Auto) (1.0-12.0) % Eos % (Auto) (0.0-7.0) % Baso % (Auto) (0.0-2.0) % Lymph # (Auto) (1.50-4.80) K/mcL Hendricks # (Auto) (0.10-0.90) K/mcL Eos # (Auto) (0.00-0.70) K/mcL Baso # (Auto) (0.00-0.30) K/mcL Immature Gran # (0.00-0.05) K/mcl Absolute Neutrophils (1.80-8.00) K/mcL POC VBG pH (7.32-7.42) POC VBG pCO2 at Temp (41-51) POC VBG pO2 (25-40) POC VBG HCO3 (24-28) POC VBG Total CO2 (25-29) POC Venous O2 Sat (40-70) POC VBG Base Excess (-2-2) VBG Lactic Acid (0.5-2) POC Sodium (133-145) POC Potassium (3.3-5.1) POC Chloride (96-108) POC Total CO2 (22-30) POC BUN (6-20) POC Creatinine (0.6-1.2) POC Glucose (70-105) POC WB Ioniz Calcium (1.16-1.32) Total Bilirubin (0.1-1.0) mg/dL Direct Bilirubin (0-0.3) mg/dL AST (<40) U/L ALT (<40) U/L Alkaline Phosphatase (39-117) U/L Total Protein (5.9-8.4) gm/dL Albumin (3.2-5.2) gm/dL Globulin (2.2-3.7) gm/dL Lipase (7-60) U/L Procalcitonin (<0.10) ng/mL Urine Color Lt. yellow Urine Appearance Clear (Clear) Urine pH 7.0 (5.0-9.0) Ur Specific Cumming 1.020 (1.000-1.035) Urine Protein 30 A (Negative) mg/dL Urine Glucose (UA) Negative (Negative) mg/dL Urine Ketones Trace A (Negative) mg/dL Urine Occult Blood Trace-intact A (Negative) kaylie/mcL Urine Nitrate Negative (Negative) Urine Bilirubin Negative (Negative) mg/dL Urine Urobilinogen Normal mg/dL Ur Leukocyte Esterase Negative (Negative) /uL Urine RBC 8 H (0-3) /hpf Urine WBC 3 (0-4) /hpf Ur Squamous Epith Cells 0 (0-4) /hpf Urine Bacteria None (0) /hpf Urine Mucus Few A (None) /hpf Ur Culture Indicated? No POC Troponin I (0.00-0.08) ED POC Tests ED POC Tests: NATALIIA - Influenza A Positive NATALIIA - Influenza B Negative NATALIIA - SARS Antigen Positive Discharge Plan Patient/Caregiver Discharge Instructions Pt seen by [employer]/PA only: No Clinical Impression: COVID-19, Influenza A Activity: increase activity as tolerated Patient Disposition: Xfer As Inpt ([facility]) Condition: Fair Discharge Date/Time: 07/06/22 16:40
[2022-07-06 14:51] LABS: ALT/SGPT 13 U/L (<40); AST/SGOT 15 U/L (<40); Albumin 4.1 gm/dL (3.2-5.2); Alkaline Phosphatase 82 U/L (39-117); Bilirubin,Direct < 0.2 mg/dL (0-0.3); Bilirubin,Total 0.7 mg/dL (0.1-1.0); Globulin 2.8 gm/dL (2.2-3.7)
--- NOTE | 2022-07-06 15:52 | Internal Med History&Physical ---
HPI History of Present Illness Patient information: Note initiated : 07/06/22 at 3:38 pm Service Date, if different from initiated Date: [] Patient: Juan Cantrell a 86 y/o M admitted on for weakness. Chief Complaint: [] History of present illness: Mr. Cantrell is a 86 year old M Presents the ED with weakness confusion nausea fevers. Per the a few days ago she was sick with a sore throat but seemed to be improving and then yesterday he became progressively and said he was not feeling well and went to bed but was unsteady getting to bed. Today he was not any better and when he was getting out of bed he started falling and his guided him to the floor. Today he has had increasing weakness and confusion. Has had nausea but no vomiting. Has been unsteady on his feet. Reported fevers and chills. He has a mild cough. No shortness of breath. No diarrhea. Patient evaluated in the ED found to have a fever of 101.5. Mild tachypnea but no tachycardia. Blood pressure mildly elevated. Rapid flu was positive for flu a and COVID was positive as well. But the Cepheid test was negative for flu and positive for COVID. Patient currently on room air with good sats. Chest x-ray unremarkable. Patient started on Tamiflu. And IV fluids. They have not had the COVID booster or the flu vaccine. Review of Systems: Pertinent positives as above. Denies headache/chest or abdominal pain/dyspnea/diarrhea. Remaining 10 point review of system reviewed negative PHYSICAL EXAM: General: Awake but lethargic, No acute Distress Eyes/N/T: EOMI, no scleral icterus, PERRL, dry MM Head/Neck: neck supple, full ROM, normocephalic atraumatic CV: RRR, No murmurs, normal s1/s2 Pulm: Clear b/l, no wheezing/rhonchi/rales, no respiratory distress Abd: soft, nontender, +BS x4 Ext: no clubbing/cyanosis/edema, nontender Neuro: Lethargic and decreased responsiveness, no focal deficits, moves all extremities, CN 2-12 grossly intact, sensations intact b/l upper/lower Psychiatric: Skin: warm/dry, normal color PFSH PFSH All Active Problems (Updated 06/16/22 @ 17:30 by Jose Bates DO) Stage II pressure ulcer of sacral region (Acute) Acute deep vein thrombosis (DVT) of left lower extremity (Acute) Edema of left lower extremity (Acute) CVA (cerebral vascular accident) (Acute) Arrhythmia (Acute) Sinus bradycardia (Acute) Syncope and collapse (Acute) Weakness (Acute) Head injury (Acute) Age-related cognitive decline (Acute) Right hand pain (Acute) Fall (Acute) Facial pain (Acute) 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 (Acute) Pain of right tibia (Acute) Medicare annual wellness visit, subsequent (Acute) History of hernia repair (Chronic ~1989) Psoriasis (Chronic) Other hammer toe(s) (acquired), 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 History of prostate cancer Hyperlipidemia Irritable bowel syndrome with diarrhea Kidney stones Medicare annual wellness visit, subsequent Mumps Other hammer toe(s) (acquired), right foot Prostate cancer Status post high-dose brachytherapy in July 2017. Continues to follow with urology, Dr. Breen, with PSA every 6 months. Psoriasis Man[facility] Dr[facility] Ign[facility] at [facility] [place]. He uses multiple strengths different topical steroid medications Surgical History History of hernia repair (~1989) History of prostate surgery (~2017) X'2 S/P cataract surgery (~03/2019) Family History Father Cancer of kidney Prostate cancer, Onset Age: 72 Daughter Mentally disabled Mother Ovarian cancer, Onset Age: 32 Social History marital status: smoking status: Former smoker smoking status stop date: 05/25/1964 alcohol intake frequency: does not drink substance use type: does not use MEDS/ALLERGIES Home Medications and Allergies Home Medications Medication Instructions Recorded Confirmed Type aspirin 81 mg chewable tablet 81 mg PO QDAY 06/06/22 02/12/23 History amlodipine 2.5 mg tablet 2.5 mg PO QDAY #90 tabs 01/20/22 07/06/22 Rx ramipril 5 mg capsule 5 mg PO QDAY #90 caps 01/20/22 07/06/22 Rx atorvastatin 40 mg tablet 40 mg PO QHS #90 tabs 06/16/22 07/06/22 Rx Allergies Allergy/AdvReac Type Severity Reaction Status Date / Time No Known Drug Allergies Allergy Verified 07/06/22 13:19 EXAM Constitutional Vitals: Temp Pulse Resp BP Pulse Ox O2 Del Method 101.5 F H 65 22 143/55 90 Room Air 07/06/22 13:53 07/06/22 15:01 07/06/22 15:01 07/06/22 15:01 07/06/22 15:01 07/06/22 14:02 DATA Data Completed and Pending Labs: Labs from last 24 hours 07/06/22 07/06/22 07/06/22 13:39 13:38 13:37 WBC RBC Hgb Hct POC Hct 42.0 MCV MCH MCHC RDW Plt Count MPV Immature Gran % (Auto) Neut % (Auto) Lymph % (Auto) Dolores % (Auto) Eos % (Auto) Baso % (Auto) Lymph # (Auto) Dolores # (Auto) Eos # (Auto) Baso # (Auto) Immature Gran # Absolute Neutrophils POC VBG pH 7.41 POC VBG pCO2 at Temp 36.6 L POC VBG pO2 38 POC VBG HCO3 23.1 L POC VBG Total CO2 24.0 L POC Venous O2 Sat 73.0 H POC VBG Base Excess -2.0 VBG Lactic Acid 1.6 POC Sodium 138 POC Potassium 3.9 POC Chloride 103 POC Total CO2 24.0 POC BUN 12 POC Creatinine 0.9 POC Glucose 142 H POC WB Ioniz Calcium 1.13 L Total Bilirubin Direct Bilirubin AST ALT Alkaline Phosphatase Total Protein Albumin Globulin Lipase Procalcitonin POC Troponin I < 0.02 07/06/22 07/06/22 07/06/22 13:25 13:25 13:25 WBC 9.7 RBC 4.41 L Hgb 14.4 Hct 41.8 POC Hct MCV 94.8 MCH 32.7 MCHC 34.4 RDW 13.2 Plt Count 188 MPV 10.9 Immature Gran % (Auto) 0.4 Neut % (Auto) 82.4 H Lymph % (Auto) 7.3 L Dolores % (Auto) 9.3 Eos % (Auto) 0 Baso % (Auto) 0.6 Lymph # (Auto) 0.70 L Dolores # (Auto) 0.90 Eos # (Auto) 0 Baso # (Auto) 0.06 Immature Gran # 0.04 Absolute Neutrophils 7.95 POC VBG pH POC VBG pCO2 at Temp POC VBG pO2 POC VBG HCO3 POC VBG Total CO2 POC Venous O2 Sat POC VBG Base Excess VBG Lactic Acid POC Sodium POC Potassium POC Chloride POC Total CO2 POC BUN POC Creatinine POC Glucose POC WB Ioniz Calcium Total Bilirubin 0.7 Direct Bilirubin < 0.2 AST 15 ALT 13 Alkaline Phosphatase 82 Total Protein 6.9 Albumin 4.1 Globulin 2.8 Lipase 15 Procalcitonin 0.12 H POC Troponin I A/P Narrative A/P Narrative: A: *COVID infection: on room air currently *Sepsis: 2/2 above *Encephalopathy(confusion/lethargy): 2/2 above *Generalized weakness/deconditioning/Falling: *HTN/HLD: P: -given age/comorbidities/moderate dz illness > high-risk for covid progression > start paxlovid, no indication for Dexamethasone/Remdesivir at this point -IVF -Monitor uop, i/o, renal fxn, electrolytes, cbc - -cont home Norvasc/Lisinopril -cont home asa, hold statin while on paxoliv -Home medication reconciliation -PT/OT -CM for placement needs -ppx: Lovenox Time Spent With Patient Time: Total time spent is greater than 50% in coordination of care (as documented) at patient's floor/unit and/or counseling patient: Initial: Total time with patient: 75 - 90 minutes
[2022-07-06 16:28] LABS: Appearance,Urine CLEAR (Clear); Bilirubin,Urine NEGATIVE (Negative); Color,Urine LT. YELLOW; Culture Indicated,Urine No; Glucose,Urine (UA) NEGATIVE (Negative); Ketones,Urine TRACE mg/dL (Negative); Leukocyte Esterase,Urine NEGATIVE /uL (Negative); Mucus,Urine FEW /hpf; Nitrate,Urine NEGATIVE (Negative); Protein,Urine 30 mg/dL (Negative); Urine Blood TRACE-INTACT ery/mcL (Negative); Urine RBC 8 /hpf (0-3); Urine Squamous Epithelial Cell 0 /hpf (0-4); Urine WBC 3 /hpf (0-4); Urobilinogen,Urine Normal
[2022-07-06] MEDS ORDERED: POTASSIUM CHLORIDE 40 MEQ in DEXTROSE 5% IN WATER 500 ML IV PRN (17:13)
[2022-07-06] MEDS ORDERED: SENNOSIDES 1 TABLET PO PRN (17:13)
[2022-07-06] MEDS ORDERED: POTASSIUM CHLORIDE 20 MEQ TABLET PO PRN ×2 (17:13)
[2022-07-06] MEDS ORDERED: ONDANSETRON 4 MG/2 ML VIAL IV PRN (17:13)
[2022-07-06] MEDS ORDERED: hydrALAZINE 20 MG/ML VIAL IV PRN (17:13)
[2022-07-06] MEDS ORDERED: 0.9 % SODIUM CHLORIDE 1,000 ML IV SCH (17:13)
[2022-07-06] MEDS ORDERED: POLYETHYLENE GLYCOL 3350 17 GM PACKET PO PRN (17:13)
[2022-07-06] MEDS ORDERED: IPRATROPIUM/ALBUTEROL 3 ML AMPUL.NEB NEB PRN (17:13)
[2022-07-06] MEDS ORDERED: MAGNESIUM SULFATE 2 GM/50 ML BAG IV PRN (17:13)
[2022-07-06] MEDS ORDERED: OSELTAMIVIR PHOSPHATE 75 MG CAPSULE PO SCH (21:00)
[2022-07-06] MEDS: NIRMATRELVIR/RITONAVIR 1 EACH BOX PO SCH (21:30)
[2022-07-06] MEDS: 0.9 % SODIUM CHLORIDE 10 ML SYRINGE IV SCH (21:31)
[2022-07-07] MEDS: 0.9 % SODIUM CHLORIDE 10 ML SYRINGE IV SCH ×3 (05:45→22:38)
[2022-07-07 06:36] LABS: Basophils # (Auto) 0.02 K/mcL (0.00-0.30); Basophils % (Auto) 0.3 % (0.0-2.0); Eosinophils # (Auto) 0 K/mcL (0.00-0.70); Eosinophils % (Auto) 0 % (0.0-7.0); Hematocrit 39.7 % (40.1-51.0); Hemoglobin 13.2 g/dL (13.7-17.5); Lymphocytes # (Auto) 0.57 K/mcL (1.50-4.80); Lymphocytes % (Auto) 9.3 % (15.5-49.0); Mean Cell Volume 95.2 fL (80.0-100.0); Mean Corpuscular HGB Conc 33.2 g/dL (31.0-36.0); Mean Platelet Volume 10.6 fL (8.8-12.5); Monocytes # (Auto) 0.67 K/mcL (0.10-0.90); Monocytes % (Auto) 10.9 % (1.0-12.0); Neutrophils % (Auto) 79.2 % (38.0-78.0); Platelet Count 162 K/mcL (140-440); RBC 4.17 M/mcL (4.63-6.08); Red Cell Distribution Width 13.5 % (11.5-14.5); WBC 6.1 K/mcL (4.5-11.0)
[2022-07-07 07:33] LABS: ALT/SGPT 11 U/L (<40); AST/SGOT 20 U/L (<40); Albumin 3.2 gm/dL (3.2-5.2); Albumin/Globulin Ratio 1.2 (1.0-2.3); Alkaline Phosphatase 63 U/L (39-117); Bilirubin,Direct < 0.2 mg/dL (0-0.3); Bilirubin,Total 0.5 mg/dL (0.1-1.0); Blood Urea Nitrogen 14 mg/dL (8-23); Calcium 8.2 mg/dL (8.6-10.4); Carbon Dioxide 25 mmol/L (22-30); Chloride 105 mmol/L (96-108); Globulin 2.7 gm/dL (2.2-3.7); Glomerular Filtration Rate 68; Glucose 101 mg/dL (70-105); Lactate Dehydrogenase 186 U/L (135-225); Triglycerides 57 mg/dL (<150); Uric Acid 4.7 mg/dL (2.5-8.0)
--- NOTE | 2022-07-07 07:59 | Internal Med Progress Note ---
SUBJECTIVE Subjective Patient information: Note initiated : 07/07/22 at 7:57 am Service Date, if different from initiated Date: [] Patient: Juan Cantrell a 86 y/o M admitted on 07/06/22 for weakness. Chief Complaint: [] Interval history: History of present illness: Mr. Cantrell is a 86 year old M Presents the ED with weakness confusion nausea fevers. Per the a few days ago she was sick with a sore throat but seemed to be improving and then yesterday he became progressively and said he was not feeling well and went to bed but was unsteady getting to bed. Today he was not any better and when he was getting out of bed he started falling and his guided him to the floor. Today he has had increasing weakness and confusion. Has had nausea but no vomiting. Has been unsteady on his feet. Reported fevers and chills. He has a mild cough. No shortness of breath. No diarrhea. Patient evaluated in the ED found to have a fever of 101.5. Mild tachypnea but no tachycardia. Blood pressure mildly elevated. Rapid flu was positive for flu a and COVID was positive as well. But the Cepheid test was negative for flu and positive for COVID. Patient currently on room air with good sats. Chest x-ray unremarkable. Patient started on Tamiflu. And IV fluids. They have not had the COVID booster or the flu vaccine. Review of Systems: Pertinent positives as above. Denies headache/chest or abdominal pain/dyspnea/diarrhea. Remaining 10 point review of system reviewed negative 07/07 Rapid screen in the ED showed positive flu and COVID but the follow-up Cepheid test only showed COVID-positive, influenza negative. Patient weak and fatigued. Slept okay. Patient desatted in the mid 80s and required oxygen replacement supp. has oc casional cough. We will start dexamethasone and remdesivir. Febrile this morning. Episodes of bradycardia. Hypophosphatemia. Review of Systems: denies headache/fever/chills/nausea/vomiting/chest or abdominal pain/diarrhea. Otherwise see above. PHYSICAL EXAM: General: Awake , No acute Distress Eyes/N/T: EOMI, no scleral icterus, Head/Neck: neck supple, full ROM, CV: RRR, No murmurs, Pulm: Clear b/l, no wheezing/rhonchi/rales, no respiratory distress Abd: soft, nontender, +BS x4 Ext: no clubbing/cyanosis/edema, nontender Neuro: Mildly lethargic, hearing impairment,j no focal deficits, moves all extremities, sensations intact b/l upper/lower Psychiatric: Skin: warm/dry, normal color Constitutional Vitals: Vital Signs Temp Pulse Resp BP Pulse Ox O2 Del Method 100.3 F H 67 21 108/66 93 Room Air 07/07/22 03:11 07/07/22 03:11 07/07/22 03:11 07/07/22 03:11 07/07/22 03:11 07/07/22 03:11 Period Temp Pulse Resp BP Sys/Devine Pulse Ox O2 Del Method O2 Flow Rate Last 24 Hr 99.3 F-101.5 F 52-88 18-28 106-157/49-76 90-97 Room Air-Room Air Intake and Output 07/06/22 07/07/22 07/07/22 19:59 03:59 11:59 Intake Total 1000 1000 Output Total 325 Balance 1000 -325 1000 Weight 81.873 kg Intake & Output: Intake & Output 07/06/22 07/07/22 07/07/22 19:59 03:59 11:59 Intake Total 1000 1000 Output Total 325 Balance 1000 -325 1000 Weight 81.873 kg Intake: IV 1000 1000 Sodium Chloride 0.9% 1,000 ml @ 1000 100 mls/hr IV .Q10H K[facility]AN[facility] Rx#: [id number] Lactated Ringers 1,000 ml @ 1000 Wide Open IV BOLUS ONE Rx#: [id number] Output: Void Amount 325 Other: Urine Appearance Clear Straight Clear Urine Color Yellow Straight Yellow Urine Odor Normal Stool Size Small Stool Color Brown Stool Consistency Normal for Patient Soft # Voids 2 # Bowel Movements 1 OBJ DATA Labs 07/07/22 05:35 07/07/22 05:35 Labs: Abnormal Lab Results 07/07/22 07/07/22 07/06/22 05:35 05:35 15:35 RBC 4.17 L Hgb 13.2 L Hct 39.7 L Neut % (Auto) 79.2 H Lymph % (Auto) 9.3 L Lymph # (Auto) 0.57 L POC VBG pCO2 at Temp POC VBG HCO3 POC VBG Total CO2 POC Venous O2 Sat POC Glucose Calcium 8.2 L POC WB Ioniz Calcium Phosphorus 2.0 L Procalcitonin Urine Protein 30 A Urine Ketones Trace A Urine Occult Blood Trace-intact A Urine RBC 8 H Urine Mucus Few A 07/06/22 07/06/22 07/06/22 13:38 13:37 13:25 RBC Hgb Hct Neut % (Auto) Lymph % (Auto) Lymph # (Auto) POC VBG pCO2 at Temp 36.6 L POC VBG HCO3 23.1 L POC VBG Total CO2 24.0 L POC Venous O2 Sat 73.0 H POC Glucose 142 H Calcium POC WB Ioniz Calcium 1.13 L Phosphorus Procalcitonin 0.12 H Urine Protein Urine Ketones Urine Occult Blood Urine RBC Urine Mucus 07/06/22 13:25 RBC 4.41 L Hgb Hct Neut % (Auto) 82.4 H Lymph % (Auto) 7.3 L Lymph # (Auto) 0.70 L POC VBG pCO2 at Temp POC VBG HCO3 POC VBG Total CO2 POC Venous O2 Sat POC Glucose Calcium POC WB Ioniz Calcium Phosphorus Procalcitonin Urine Protein Urine Ketones Urine Occult Blood Urine RBC Urine Mucus Meds: Medications Acetaminophen (Acetaminophen 325 Mg Tablet) 650 mg PO Q6HP PRN; Protocol PRN Reason: Per Pain Protocol/Fever > 101 Albuterol/Ipratropium (Ipratropium/Albuterol 3 Ml Ampul.Neb) 3 ml NEB Q4HP PRN PRN Reason: Shortness Of Breath Amlodipine Besylate (Amlodipine 5 Mg Tablet) 2.5 mg PO Q48H [facility] Aspirin (Aspirin 81 Mg Tab.Chew) 81 mg PO QDAY [facility] Enoxaparin Sodium (Enoxaparin 40 Mg/0.4 Ml Syringe) 40 mg SQ DAILY [facility] Hydralazine HCl (Hydralazine 20 Mg/Ml Vial) 0 mg IV Q2HP PRN PRN Reason: Hypertension Potassium Chloride 40 meq/ (Dextrose) 520 mls @ 130 mls/hr IV UD PRN PRN Reason: Potassium < 3 Magnesium Sulfate (Magnesium Sulfate) 2 gm in 50 mls @ 50 mls/hr IV UD PRN PRN Reason: Magnesium </= 1.6 Lisinopril (Lisinopril 10 Mg Tablet) 10 mg PO DAILY [facility] Ondansetron HCl (Ondansetron 4 Mg/2 Ml Vial) 4 mg IV Q4HP PRN PRN Reason: Nausea And Vomiting Polyethylene Glycol (Polyethylene Glycol 3350 17 Gm Packet) 17 gm PO DAILYP PRN PRN Reason: Constipation Potassium Chloride (Potassium Chloride 20 Meq Tablet) 40 meq PO UD PRN PRN Reason: Potssium is 3-3.5 Potassium Chloride (Potassium Chloride 20 Meq Tablet) 40 meq PO UD PRN PRN Reason: Potassium < 3 Senna (Sennosides 1 Tablet) 2 tab PO DAILYP PRN PRN Reason: Constipation Sodium Chloride (0.9 % Sodium Chloride 10 Ml Syringe) 10 ml IV Q8 [facility] Last Admin: 07/07/22 05:45 Dose: Not Given A/P Narrative A/P Narrative: A: *COVID infection: *Acute hypoxic respiratory failure: 2/2 above -on 2L NC *Sepsis: 2/2 above -febrile, *Encephalopathy(confusion/lethargy): 2/2 above *Generalized weakness/deconditioning/Falling: *Bradycardia, asymptomatic: monitor, chronic per old records *Hypophos: *HTN/HLD: P: -Dexamethasone/Remdesivir -IVF d/c -Monitor uop, i/o, renal fxn, electrolytes(trend and replace), cbc -monitor inflammatory markers -cont home Norvasc/Lisinopril -cont home asa/statin -PT/OT -CM for placement needs -ppx: Lovenox Time Spent With Patient Time: Total time spent is greater than 50% in coordination of care (as documented) at patient's floor/unit and/or counseling patient: Subsequent: Total time with patient: 50 - 65 Minutes QUALITY Stroke Symptom Onset Unknown: No VTE Deep Vein Thrombosis/Pulmonary Embolism Present on Admission: No
[2022-07-07] MEDS ORDERED: NIRMATRELVIR/RITONAVIR 1 EACH BOX PO SCH (09:00)
[2022-07-07] MEDS ORDERED: REMDESIVIR 200 MG in 0.9 % SODIUM CHLORIDE 250 ML IV ONE (10:00)
[2022-07-07] MEDS: ASPIRIN 81 MG TAB.CHEW PO SCH (10:30)
[2022-07-07] MEDS: ENOXAPARIN 40 MG/0.4 ML SYRINGE SQ SCH (10:30)
[2022-07-07] MEDS: NEUTRA PHOS 1 PACKET PO SCH ×2 (10:30→22:35)
[2022-07-07] MEDS: DEXAMETHASONE 4 MG TABLET PO SCH (10:31)
[2022-07-07] MEDS: ACETAMINOPHEN 325 MG TABLET PO PRN (10:31)
[2022-07-07] MEDS: NIRMATRELVIR/RITONAVIR 1 EACH BOX PO SCH (11:47)
[2022-07-07] MEDS: LISINOPRIL 10 MG TABLET PO SCH (12:17)
[2022-07-07] MEDS ORDERED: TAMSULOSIN 0.4 MG CAPSULE PO ONE ×2 (22:18→22:32)
[2022-07-07] MEDS: ATORVASTATIN 40 MG TABLET PO SCH (22:35)
[2022-07-08] MEDS: 0.9 % SODIUM CHLORIDE 10 ML SYRINGE IV SCH ×3 (05:41→20:00)
--- NOTE | 2022-07-08 07:57 | Internal Med Progress Note ---
SUBJECTIVE Subjective Patient information: Note initiated : 07/08/22 at 7:55 am Service Date, if different from initiated Date: [] Patient: Juan Cantrell a 86 y/o M admitted on 07/06/22 for weakness. Chief Complaint: [] Interval history: History of present illness: Mr. Cantrell is a 86 year old M Presents the ED with weakness confusion nausea fevers. Per the a few days ago she was sick with a sore throat but seemed to be improving and then yesterday he became progressively and said he was not feeling well and went to bed but was unsteady getting to bed. Today he was not any better and when he was getting out of bed he started falling and his guided him to the floor. Today he has had increasing weakness and confusion. Has had nausea but no vomiting. Has been unsteady on his feet. Reported fevers and chills. He has a mild cough. No shortness of breath. No diarrhea. Patient evaluated in the ED found to have a fever of 101.5. Mild tachypnea but no tachycardia. Blood pressure mildly elevated. Rapid flu was positive for flu a and COVID was positive as well. But the Cepheid test was negative for flu and positive for COVID. Patient currently on room air with good sats. Chest x-ray unremarkable. Patient started on Tamiflu. And IV fluids. They have not had the COVID booster or the flu vaccine. Review of Systems: Pertinent positives as above. Denies headache/chest or abdominal pain/dyspnea/diarrhea. Remaining 10 point review of system reviewed negative 07/07 Rapid screen in the ED showed positive flu and COVID but the follow-up Cepheid test only showed COVID-positive, influenza negative. Patient weak and fatigued. Slept okay. Patient desatted in the mid 80s and required oxygen replacement supp. has oc casional cough. We will start dexamethasone and remdesivir. Febrile this morning. Episodes of bradycardia. Hypophosphatemia. 07/08 Patient sit up in his chair eating breakfast. Seems to be doing a bit better. Denying cough and shortness of breath. Hypophosphatemia improving. Trial on room air this morning. Review of Systems: denies headache/fever/chills/nausea/vomiting/chest or abdominal pain/diarrhea. Otherwise see above. PHYSICAL EXAM: General: Awake , No acute Distress Eyes/N/T: EOMI, no scleral icterus, Head/Neck: neck supple, full ROM, CV: RRR, No murmurs, Pulm: Clear b/l, no wheezing/rhonchi/rales, no respiratory distress Abd: soft, nontender, +BS x4 Ext: no clubbing/cyanosis/edema, nontender Neuro: alert, hearing impairment, no focal deficits, moves all extremities, sensations intact b/l upper/lower Psychiatric: Skin: warm/dry, normal color Constitutional Vitals: Vital Signs Temp Pulse Resp BP Pulse Ox O2 Del Method O2 Flow Rate 98.9 F 95 H 18 125/66 92 Room Air 0.5 07/08/22 03:47 07/08/22 03:47 07/08/22 03:47 07/08/22 03:47 07/08/22 03:47 07/08/22 03:47 07/07/22 22:50 Period Temp Pulse Resp BP Sys/Devine Pulse Ox O2 Del Method O2 Flow Rate Last 24 Hr 97.5 F-101.3 F 51-95 16-22 119-131/55-78 92-97 Nasal Cannula- Room Air 0.5-2 Intake and Output 07/07/22 07/08/22 07/08/22 19:59 03:59 11:59 Intake Total 390 250 Output Total 470 575 Balance -80 -325 Weight 81.012 kg Intake & Output: Intake & Output 07/07/22 07/08/22 07/08/22 19:59 03:59 11:59 Intake Total 390 250 Output Total 470 575 Balance -80 -325 Weight 81.012 kg Intake: Nourishment/Supplement quantity 50 (ml) Oral 340 250 Output: Void Amount 470 575 Other: Meal Dinner Percent of Meal Consumed 50% Feeding Ability Needs Supervision Urine Appearance Clear Clear Urine Color Yellow Yellow Urine Odor Normal Stool Size Smear # Voids 4 # of times incontinent of 2 Bowels OBJ DATA Labs 07/07/22 05:35 07/07/22 05:35 Labs: Abnormal Lab Results 07/07/22 07/07/22 07/07/22 05:35 05:35 05:30 RBC 4.17 L Hgb 13.2 L Hct 39.7 L Neut % (Auto) 79.2 H Lymph % (Auto) 9.3 L Lymph # (Auto) 0.57 L POC VBG pCO2 at Temp POC VBG HCO3 POC VBG Total CO2 POC Venous O2 Sat POC Glucose Calcium 8.2 L POC WB Ioniz Calcium Phosphorus 2.0 L C-Reactive Protein 2.00 H Procalcitonin Urine Protein Urine Ketones Urine Occult Blood Urine RBC Urine Mucus 07/06/22 07/06/22 07/06/22 15:35 13:38 13:37 RBC Hgb Hct Neut % (Auto) Lymph % (Auto) Lymph # (Auto) POC VBG pCO2 at Temp 36.6 L POC VBG HCO3 23.1 L POC VBG Total CO2 24.0 L POC Venous O2 Sat 73.0 H POC Glucose 142 H Calcium POC WB Ioniz Calcium 1.13 L Phosphorus C-Reactive Protein Procalcitonin Urine Protein 30 A Urine Ketones Trace A Urine Occult Blood Trace-intact A Urine RBC 8 H Urine Mucus Few A 07/06/22 07/06/22 13:25 13:25 RBC 4.41 L Hgb Hct Neut % (Auto) 82.4 H Lymph % (Auto) 7.3 L Lymph # (Auto) 0.70 L POC VBG pCO2 at Temp POC VBG HCO3 POC VBG Total CO2 POC Venous O2 Sat POC Glucose Calcium POC WB Ioniz Calcium Phosphorus C-Reactive Protein Procalcitonin 0.12 H Urine Protein Urine Ketones Urine Occult Blood Urine RBC Urine Mucus Meds: Medications Acetaminophen (Acetaminophen 325 Mg Tablet) 650 mg PO Q6HP PRN; Protocol PRN Reason: Per Pain Protocol/Fever > 101 Last Admin: 07/07/22 10:31 Dose: 650 mg Albuterol/Ipratropium (Ipratropium/Albuterol 3 Ml Ampul.Neb) 3 ml NEB Q4HP PRN PRN Reason: Shortness Of Breath Amlodipine Besylate (Amlodipine 5 Mg Tablet) 2.5 mg PO DAILY [facility] Aspirin (Aspirin 81 Mg Tab.Chew) 81 mg PO QDAY [facility] Last Admin: 07/07/22 10:30 Dose: 81 mg Atorvastatin Calcium (Atorvastatin 40 Mg Tablet) 40 mg PO QHS [facility] Last Admin: 07/07/22 22:35 Dose: 40 mg Dexamethasone (Dexamethasone 4 Mg Tablet) 6 mg PO DAILY [facility] Last Admin: 07/07/22 10:31 Dose: 6 mg Enoxaparin Sodium (Enoxaparin 40 Mg/0.4 Ml Syringe) 40 mg SQ DAILY [facility] Last Admin: 07/07/22 10:30 Dose: 40 mg Hydralazine HCl (Hydralazine 20 Mg/Ml Vial) 0 mg IV Q2HP PRN PRN Reason: Hypertension Potassium Chloride 40 meq/ (Dextrose) 520 mls @ 130 mls/hr IV UD PRN PRN Reason: Potassium < 3 Magnesium Sulfate (Magnesium Sulfate) 2 gm in 50 mls @ 50 mls/hr IV UD PRN PRN Reason: Magnesium </= 1.6 REMDESIVIR 100 mg/ Sodium (Chloride) 250 mls @ 500 mls/hr IV Q24H [facility] Stop: 07/11/22 09:29 Lisinopril (Lisinopril 10 Mg Tablet) 10 mg PO DAILY [facility] Last Admin: 07/07/22 12:17 Dose: 10 mg Ondansetron HCl (Ondansetron 4 Mg/2 Ml Vial) 4 mg IV Q4HP PRN PRN Reason: Nausea And Vomiting Polyethylene Glycol (Polyethylene Glycol 3350 17 Gm Packet) 17 gm PO DAILYP PRN PRN Reason: Constipation Potassium Chloride (Potassium Chloride 20 Meq Tablet) 40 meq PO UD PRN PRN Reason: Potssium is 3-3.5 Potassium Chloride (Potassium Chloride 20 Meq Tablet) 40 meq PO UD PRN PRN Reason: Potassium < 3 Senna (Sennosides 1 Tablet) 2 tab PO DAILYP PRN PRN Reason: Constipation Sodium Chloride (0.9 % Sodium Chloride 10 Ml Syringe) 10 ml IV Q8 [facility] Last Admin: 07/08/22 05:41 Dose: Not Given Tamsulosin HCl (Tamsulosin 0.4 Mg Capsule) 0.4 mg PO [facility] A/P Narrative A/P Narrative: A: *COVID infection: *Acute hypoxic respiratory failure: 2/2 above -trial on room air this morning *Sepsis: 2/2 above -afebrile o/n *Encephalopathy(confusion/lethargy): 2/2 above, more alert, confusion at times *Likely underlying mild Dementia vs MCI: -MRI Brain last May with moderate atrophy and chronic ischemic changes, 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 *Generalized weakness/deconditioning/Falling: *Bradycardia, asymptomatic: monitor, chronic per old records *Hypophos: *HTN/HLD: P: -Dexamethasone/Remdesivir -neuro checks -IS/Acapella, prn nebs, RT -Monitor uop, i/o, renal fxn, electrolytes(trend and replace), cbc -monitor inflammatory markers -cont home Norvasc/Lisinopril -cont home asa/statin -PT/OT -CM for placement needs -ppx: Lovenox Time Spent With Patient Time: Total time spent is greater than 50% in coordination of care (as documented) at patient's floor/unit and/or counseling patient: Subsequent: Total time with patient: 50 - 65 Minutes QUALITY Stroke Symptom Onset Unknown: No VTE Deep Vein Thrombosis/Pulmonary Embolism Present on Admission: No
[2022-07-08 08:03] LABS: ALT/SGPT 15 U/L (<40); AST/SGOT 28 U/L (<40); Albumin 3.3 gm/dL (3.2-5.2); Albumin/Globulin Ratio 1.2 (1.0-2.3); Alkaline Phosphatase 66 U/L (39-117); Bilirubin,Direct < 0.2 mg/dL (0-0.3); Bilirubin,Total 0.3 mg/dL (0.1-1.0); Blood Urea Nitrogen 21 mg/dL (8-23); Calcium 8.8 mg/dL (8.6-10.4); Carbon Dioxide 24 mmol/L (22-30); Chloride 104 mmol/L (96-108); Globulin 2.8 gm/dL (2.2-3.7); Glomerular Filtration Rate 81; Glucose 146 mg/dL (70-105); Lactate Dehydrogenase 191 U/L (135-225); Phosphorous 2.7 mg/dL (2.5-4.5); Triglycerides 36 mg/dL (<150); Uric Acid 4.6 mg/dL (2.5-8.0)
[2022-07-08] MEDS ORDERED: amLODIPine 5 MG TABLET PO SCH (09:00)
[2022-07-08] MEDS: ASPIRIN 81 MG TAB.CHEW PO SCH (09:38)
[2022-07-08] MEDS: ENOXAPARIN 40 MG/0.4 ML SYRINGE SQ SCH (09:38)
[2022-07-08] MEDS: LISINOPRIL 10 MG TABLET PO SCH (09:39)
[2022-07-08] MEDS: DEXAMETHASONE 4 MG TABLET PO SCH (09:39)
[2022-07-08] MEDS: amLODIPine 5 MG TABLET PO SCH (09:39)
--- NOTE | 2022-07-08 10:37 | EKG ---
[facility] Test Date: 2022-07-07 Pat Name: Juan Cantrell [facility] Gender: Male [employer]ing Machine Operator: : [id number] Requested By: Elgin Ramos Order Number: [id number] Reading MD: Joseph Welch Measurements Intervals [place] Rate: 49 P: 48 TX: 165 QRS: -18 QRSD: 82 T: 77 QT: 456 QTc: 389 Interpretive Statements Sinus bradycardia Atrial premature complexes in couplets LEFT VENTRICULAR HYPERTROPHY with repolarization abnormality Electronically Signed On 07-08-2022 10:37:06 PST by Joseph Welch /[email or web address]/[id number]
[2022-07-08] MEDS: REMDESIVIR 100 MG in 0.9 % SODIUM CHLORIDE 250 ML IV SCH (13:11)
--- NOTE | 2022-07-08 15:25 | Discharge Summary ---
Discharge Provider Provider IMPORTANT FOLLOW-UP INFORMATION FOR PCP: Patient information: Note initiated : 07/08/22 at 3:23 pm Service Date, if different from initiated Date: [] Patient: Juan Cantrell 86 y/o M admitted on 07/06/22 for weakness. Chief Complaint: [] Date of admission: 07/06/22 16:40 Discharge date: 07/09/22 Primary care physician: Jose Bates DO Consults: 07/06/22 Consult to Physician [CONS] Stat Comment: Consulting Provider: Elgin Ramos Reason For Exam: Physician to Consult COURSE Hospital Course Hospital course: History of present illness: Mr. Cantrell is a 86 year old M Presents the ED with weakness confusion nausea fevers. Per the a few days ago she was sick with a sore throat but seemed to be improving and then yesterday he became progressively and said he was not feeling well and went to bed but was unsteady getting to bed. Today he was not any better and when he was getting out of bed he started falling and his guided him to the floor. Today he has had increasing weakness and confusion. Has had nausea but no vomiting. Has been unsteady on his feet. Reported fevers and chills. He has a mild cough. No shortness of breath. No diarrhea. Patient evaluated in the ED found to have a fever of 101.5. Mild tachypnea but no tachycardia. Blood pressure mildly elevated. Rapid flu was positive for flu a and COVID was positive as well. But the Cepheid test was negative for flu and positive for COVID. Patient currently on room air with good sats. Chest x-ray unremarkable. Patient started on Tamiflu. And IV fluids. They have not had the COVID booster or the flu vaccine. Review of Systems: Pertinent positives as above. Denies headache/chest or abdominal pain/dyspnea/diarrhea. Remaining 10 point review of system reviewed negative 07/07 Rapid screen in the ED showed positive flu and COVID but the follow-up Cepheid test only showed COVID-positive, influenza negative. Patient weak and fatigued. Slept okay. Patient desatted in the mid 80s and required oxygen replacement supp. has occasional cough. We will start dexamethasone and remdesivir. Febrile this morning. Episodes of bradycardia. Hypophosphatemia. 07/08 Patient sit up in his chair eating breakfast. Seems to be doing a bit better. Denying cough and shortness of breath. Hypophosphatemia improving. Trial on room air this morning. 07/09 Patient sleeping but awakens easily. Patient doing well on room air. 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 *Generalized weakness/deconditioning/Falling: *Bradycardia, asymptomatic: monitor, chronic per old records *Hypophos: *HTN/HLD: Discharge diagnosis: COVID infection hypoxia sepsis encephalopathy Secondary discharge diagnosis: Dementia generalized weakness deconditioning falling hypertension Time Spent with Patient Time attestation: Total time spent providing and/or coordinating discharge services: Time spent: Greater than 30 minutes EXAM Constitutional Vitals: Temp Pulse Resp BP Pulse Ox O2 Del Method O2 Flow Rate 98.3 F 60 20 124/58 95 Room Air 0.5 07/08/22 12:00 07/08/22 12:00 07/08/22 12:00 07/08/22 12:00 07/08/22 12:00 07/08/22 12:00 07/07/22 22:50 Discharge Data Data Completed and Pending Labs on day of discharge: Labs from last 24 hours 07/08/22 05:33 Sodium 138 Potassium 4.3 Chloride 104 Carbon Dioxide 24 Anion Gap 10.0 BUN 21 Creatinine 0.8 GFR Calculation 81 Glucose 146 H Uric Acid 4.6 Calcium 8.8 Phosphorus 2.7 Magnesium 1.9 Total Bilirubin 0.3 Direct Bilirubin < 0.2 GGT 14 AST 28 ALT 15 Alkaline Phosphatase 66 Lactate Dehydrogenase 191 Total Protein 6.1 Albumin 3.3 Globulin 2.8 Albumin/Globulin Ratio 1.2 Triglycerides 36 Discharge Plan Patient/Caregiver Discharge Instructions Activity: increase activity as tolerated Diet: Regular Diet Prescriptions: Continued amlodipine 2.5 mg tablet 2.5 mg PO QDAY Qty: 90 1RF ramipril 5 mg capsule 5 mg PO QDAY Qty: 90 3RF aspirin 81 mg tablet,chewable 81 mg PO QDAY atorvastatin 40 mg tablet 40 mg PO QHS Qty: 90 3RF Follow Up Plan Follow up with: Jose Bates DO [Primary Care Provider] - Patient Disposition: Xfer As Swing Bed (TS) Prognosis: Fair Rehab Potential: Fair I certify that the patient requires SNF services: Yes Overall status at discharge: patient is progressing back to baseline Discharge Orders: Discharge Order (Routine); Ordered 07/09/22 [facility] Deep Vein Thrombosis/Pulmonary Embolism Present on Admission: No
[2022-07-08] MEDS: ACETAMINOPHEN 325 MG TABLET PO PRN (20:45)
[2022-07-08] MEDS: ATORVASTATIN 40 MG TABLET PO SCH (20:45)
[2022-07-08] MEDS ORDERED: TAMSULOSIN 0.4 MG CAPSULE PO SCH (21:00)
[2022-07-09] MEDS: 0.9 % SODIUM CHLORIDE 10 ML SYRINGE IV SCH ×2 (03:30→12:52)
--- NOTE | 2022-07-09 08:49 | Internal Med Progress Note ---
SUBJECTIVE Subjective Patient information: Note initiated : 07/09/22 at 8:49 am Service Date, if different from initiated Date: [] Patient: Juan Cantrell a 86 y/o M admitted on 07/06/22 for weakness. Chief Complaint: [] Interval history: History of present illness: Mr. aCntrell is a 86 year old M Presents the ED with weakness confusion nausea fevers. Per the a few days ago she was sick with a sore throat but seemed to be improving and then yesterday he became progressively and said he was not feeling well and went to bed but was unsteady getting to bed. Today he was not any better and when he was getting out of bed he started falling and his guided him to the floor. Today he has had increasing weakness and confusion. Has had nausea but no vomiting. Has been unsteady on his feet. Reported fevers and chills. He has a mild cough. No shortness of breath. No diarrhea. Patient evaluated in the ED found to have a fever of 101.5. Mild tachypnea but no tachycardia. Blood pressure mildly elevated. Rapid flu was positive for flu a and COVID was positive as well. But the Cepheid test was negative for flu and positive for COVID. Patient currently on room air with good sats. Chest x-ray unremarkable. Patient started on Tamiflu. And IV fluids. They have not had the COVID booster or the flu vaccine. Review of Systems: Pertinent positives as above. Denies headache/chest or abdominal pain/dyspnea/diarrhea. Remaining 10 point review of system reviewed negative 07/07 Rapid screen in the ED showed positive flu and COVID but the follow-up Cepheid test only showed COVID-positive, influenza negative. Patient weak and fatigued. Slept okay. Patient desatted in the mid 80s and required oxygen replacement supp. has oc casional cough. We will start dexamethasone and remdesivir. Febrile this morning. Episodes of bradycardia. Hypophosphatemia. 07/08 Patient sit up in his chair eating breakfast. Seems to be doing a bit better. Denying cough and shortness of breath. Hypophosphatemia improving. Trial on room air this morning. 07/09 Patient sleeping but awakens easily. Patient doing well on room air. PT eval uation patient likely needs further rehab before going home. Review of Systems: denies headache/fever/chills/nausea/vomiting/chest or abdominal pain/diarrhea. Otherwise see above. PHYSICAL EXAM: General: Awake , No acute Distress Eyes/N/T: EOMI, no scleral icterus, Head/Neck: neck supple, full ROM, CV: RRR, No murmurs, Pulm: Clear b/l, no wheezing/rhonchi/rales, no respiratory distress Abd: soft, nontender, +BS x4 Ext: no clubbing/cyanosis/edema, nontender Neuro: alert, hearing impairment, no focal deficits, moves all extremities, sensations intact b/l upper/lower Psychiatric: Skin: warm/dry, normal color Constitutional Vitals: Vital Signs Temp Pulse Resp BP Pulse Ox O2 Del Method O2 Flow Rate 97.3 F 57 L 18 120/70 91 Room Air 0.5 07/09/22 07:37 07/09/22 07:37 07/09/22 07:37 07/09/22 07:37 07/09/22 07:37 07/09/22 07:37 07/07/22 22:50 Period Temp Pulse Resp BP Sys/Devine Pulse Ox O2 Del Method O2 Flow Rate Last 24 Hr 97.3 F-98.3 F 51-70 18-24 120-149/58-105 91-97 Room Air-Room Air Intake and Output 07/08/22 07/09/22 07/09/22 19:59 03:59 11:59 Intake Total 540 300 Output Total 402 1 Balance 138 299 Weight 81.42 kg Intake & Output: Intake & Output 07/08/22 07/09/22 07/09/22 19:59 03:59 11:59 Intake Total 540 300 Output Total 402 1 Balance 138 299 Weight 81.42 kg Intake: IV 250 Veklury 100 mg In Sodium 250 Chloride 0.9% 250 ml @ 500 mls/ hr IV Q24H [facility] Rx#:[id number] Oral 540 50 Output: Void Amount 400 # of times incontinent of urine 2 1 Other: Urine Appearance Clear Clear Urine Color Yellow Yellow Yellow Urine Odor Normal Normal Stool Size Small Stool Color Brown # Voids 1 1 1 # Bowel Movements 1 OBJ DATA Labs 07/07/22 05:35 07/08/22 05:33 Labs: Abnormal Lab Results 07/08/22 07/07/22 07/07/22 05:33 05:35 05:35 RBC 4.17 L Hgb 13.2 L Hct 39.7 L Neut % (Auto) 79.2 H Lymph % (Auto) 9.3 L Lymph # (Auto) 0.57 L POC VBG pCO2 at Temp POC VBG HCO3 POC VBG Total CO2 POC Venous O2 Sat Glucose 146 H POC Glucose Calcium 8.2 L POC WB Ioniz Calcium Phosphorus 2.0 L C-Reactive Protein Procalcitonin Urine Protein Urine Ketones Urine Occult Blood Urine RBC Urine Mucus 07/07/22 07/06/22 07/06/22 05:30 15:35 13:38 RBC Hgb Hct Neut % (Auto) Lymph % (Auto) Lymph # (Auto) POC VBG pCO2 at Temp 36.6 L POC VBG HCO3 23.1 L POC VBG Total CO2 24.0 L POC Venous O2 Sat 73.0 H Glucose POC Glucose Calcium POC WB Ioniz Calcium Phosphorus C-Reactive Protein 2.00 H Procalcitonin Urine Protein 30 A Urine Ketones Trace A Urine Occult Blood Trace-intact A Urine RBC 8 H Urine Mucus Few A 07/06/22 07/06/22 07/06/22 13:37 13:25 13:25 RBC 4.41 L Hgb Hct Neut % (Auto) 82.4 H Lymph % (Auto) 7.3 L Lymph # (Auto) 0.70 L POC VBG pCO2 at Temp POC VBG HCO3 POC VBG Total CO2 POC Venous O2 Sat Glucose POC Glucose 142 H Calcium POC WB Ioniz Calcium 1.13 L Phosphorus C-Reactive Protein Procalcitonin 0.12 H Urine Protein Urine Ketones Urine Occult Blood Urine RBC Urine Mucus Meds: Medications Acetaminophen (Acetaminophen 325 Mg Tablet) 650 mg PO Q6HP PRN; Protocol PRN Reason: Per Pain Protocol/Fever > 101 Last Admin: 07/08/22 20:45 Dose: 650 mg Albuterol/Ipratropium (Ipratropium/Albuterol 3 Ml Ampul.Neb) 3 ml NEB Q4HP PRN PRN Reason: Shortness Of Breath Amlodipine Besylate (Amlodipine 5 Mg Tablet) 2.5 mg PO DAILY [facility] Last Admin: 07/08/22 09:39 Dose: 2.5 mg Aspirin (Aspirin 81 Mg Tab.Chew) 81 mg PO QDAY [facility] Last Admin: 07/08/22 09:38 Dose: 81 mg Atorvastatin Calcium (Atorvastatin 40 Mg Tablet) 40 mg PO QHS [facility] Last Admin: 07/08/22 20:45 Dose: 40 mg Dexamethasone (Dexamethasone 4 Mg Tablet) 6 mg PO DAILY [facility] Last Admin: 07/08/22 09:39 Dose: 6 mg Enoxaparin Sodium (Enoxaparin 40 Mg/0.4 Ml Syringe) 40 mg SQ DAILY [facility] Last Admin: 07/08/22 09:38 Dose: 40 mg Hydralazine HCl (Hydralazine 20 Mg/Ml Vial) 0 mg IV Q2HP PRN PRN Reason: Hypertension Potassium Chloride 40 meq/ (Dextrose) 520 mls @ 130 mls/hr IV UD PRN PRN Reason: Potassium < 3 Magnesium Sulfate (Magnesium Sulfate) 2 gm in 50 mls @ 50 mls/hr IV UD PRN PRN Reason: Magnesium </= 1.6 REMDESIVIR 100 mg/ Sodium (Chloride) 250 mls @ 500 mls/hr IV Q24H [facility] Stop: 07/11/22 09:29 Last Infusion: 07/08/22 21:20 Dose: Infused Lisinopril (Lisinopril 10 Mg Tablet) 10 mg PO DAILY [facility] Last Admin: 07/08/22 09:39 Dose: 10 mg Ondansetron HCl (Ondansetron 4 Mg/2 Ml Vial) 4 mg IV Q4HP PRN PRN Reason: Nausea And Vomiting Polyethylene Glycol (Polyethylene Glycol 3350 17 Gm Packet) 17 gm PO DAILYP PRN PRN Reason: Constipation Potassium Chloride (Potassium Chloride 20 Meq Tablet) 40 meq PO UD PRN PRN Reason: Potssium is 3-3.5 Potassium Chloride (Potassium Chloride 20 Meq Tablet) 40 meq PO UD PRN PRN Reason: Potassium < 3 Senna (Sennosides 1 Tablet) 2 tab PO DAILYP PRN PRN Reason: Constipation Sodium Chloride (0.9 % Sodium Chloride 10 Ml Syringe) 10 ml IV Q8 [facility] Last Admin: 07/09/22 03:30 Dose: 10 ml Tamsulosin HCl (Tamsulosin 0.4 Mg Capsule) 0.4 mg PO HS [facility] Last Admin: 07/08/22 20:45 Dose: 0.4 mg A/P Narrative A/P Narrative: A: *COVID infection: *Acute hypoxic respiratory failure: 2/2 above -now on room air *Sepsis: 2/2 above -afebrile o/n *Encephalopathy(confusion/lethargy): 2/2 above, more alert, confusion at times *Likely underlying mild Dementia vs MCI: -MRI Brain last May with moderate atrophy and chronic ischemic changes, 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 *Generalized weakness/deconditioning/Falling: *Bradycardia, asymptomatic: monitor, chronic per old records *Hypophos: improving *HTN/HLD: P: -Dexamethasone/Remdesivir -IS/Acapella, prn nebs, RT -Monitor uop, i/o, renal fxn, electrolytes(trend and replace), cbc -monitor inflammatory markers -cont home Norvasc/Lisinopril -cont home asa/statin -cont pt eval -PT/OT -CM for placement needs -ppx: Lovenox Time Spent With Patient Time: Total time spent is greater than 50% in coordination of care (as documented) at patient's floor/unit and/or counseling patient: Subsequent: Total time with patient: 35 - 49 minutes QUALITY Stroke Symptom Onset Unknown: No VTE Deep Vein Thrombosis/Pulmonary Embolism Present on Admission: No
[2022-07-09] MEDS: amLODIPine 5 MG TABLET PO SCH (10:02)
[2022-07-09] MEDS: ENOXAPARIN 40 MG/0.4 ML SYRINGE SQ SCH (10:03)
[2022-07-09] MEDS: LISINOPRIL 10 MG TABLET PO SCH (10:03)
[2022-07-09] MEDS: ASPIRIN 81 MG TAB.CHEW PO SCH (10:03)
[2022-07-09] MEDS: DEXAMETHASONE 4 MG TABLET PO SCH (10:03)
[2022-07-09] MEDS: REMDESIVIR 100 MG in 0.9 % SODIUM CHLORIDE 250 ML IV SCH (12:51)
== END 2022-07-09 15:45 | disposition swing bed (61) | DRG 871 ==
LOC: ED 13:05 → MEDSUR 16:40
PROVIDERS: ADMIT Internal Medicine; ATTEND Internal Medicine

== ENCOUNTER 2022-07-17 13:17 | Inpatient (IN) ==
--- NOTE | 2022-07-17 13:21 | Emergency Department Note ---
HPI General Chief complaint: Weakness Stated complaint: AMS Time Seen by Provider: 07/17/22 13:20 Source: patient Mode of arrival: wheelchair Limitations: altered mental status History of Present Illness HPI Narrative: Narrative: Patient is an 86-year-old male with recent hospitalization due to COVID who presents to the emergency department due to generalized weakness. Patient endorses significant generalized weakness, worsening shortness of breath and cough, and chills. He states that for the last couple of days has started to feel worse. And it has gotten bad enough that he is home health care provider t old him to come to the emergency department. He denies any other symptoms at this time. Related Data Home Medications Medication Instructions Recorded Confirmed aspirin 81 mg chewable tablet 81 mg PO QDAY 10/28/21 07/19/22 Previous Rx's Medication Instructions Recorded amlodipine 2.5 mg tablet 2.5 mg PO QDAY #90 tabs 01/20/22 ramipril 5 mg capsule 5 mg PO QDAY #90 caps 01/20/22 atorvastatin 40 mg tablet 40 mg PO QHS #90 tabs 06/16/22 amoxicillin 500 mg-potassium 1 tab PO BID #10 tabs 07/21/22 clavulanate 125 mg tablet (Augmentin) doxycycline hyclate 100 mg tablet 100 mg PO BID pneumonia 7 days #14 07/21/22 tabs Allergies Allergy/AdvReac Type Severity Reaction Status Date / Time No Known Drug Allergies Allergy Verified 07/17/22 13:20 Review of Systems ROS ROS Narrative: Narrative: Constitutional: Reports chills and weakness (Generalized); Denies fever Eyes: Denies eye pain or vision change ENT ED: Denies throat pain or rhinorrhea Cardiovascular: Denies chest pain, dyspnea on exertion, orthopnea or edema Respiratory: Reports shortness of breath and cough Gastrointestinal: Denies abdominal pain, nausea, vomiting, diarrhea, constipation, hematochezia or melena Genitourinary: Denies dysuria or frequency Musculoskeletal: Denies back pain or myalgia Integumentary: Denies rash or lesions Neurological: Reports weakness (Generalized); Denies headache, numbness, confusion, abnormal gait or dizziness PFSH Narrative Patient History Narrative: Narrative: Medical/Surgical/Family History All Active Problems (Updated 07/24/22 @ 12:29 by Miguelangel Sesay MD) Pneumonia (Acute) Hospital-acquired pneumonia (Acute) COVID-19 (Acute) Influenza A (Acute) Stage II pressure ulcer of sacral region (Acute) Acute deep vein thrombosis (DVT) of left lower extremity (Acute) Edema of left lower extremity (Acute) CVA (cerebral vascular accident) (Acute) Arrhythmia (Acute) Sinus bradycardia (Acute) Syncope and collapse (Acute) Weakness (Acute) Head injury (Acute) Age-related cognitive decline (Acute) Right hand pain (Acute) Fall (Acute) Facial pain (Acute) 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 (Acute) Pain of right tibia (Acute) Medicare annual wellness visit, subsequent (Acute) History of hernia repair (Chronic ~1989) Psoriasis (Chronic) Other hammer toe(s) (acquired), 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 History of prostate cancer Hyperlipidemia Irritable bowel syndrome with diarrhea Kidney stones Medicare annual wellness visit, subsequent Mumps Other hammer toe(s) (acquired), right foot Prostate cancer Status post high-dose brachytherapy in July 2017. Continues to follow with urology, Dr. Breen, with PSA every 6 months. Psoriasis Man[facility] Dr[facility] [place]. He uses multiple strengths different topical steroid medications Surgical History History of hernia repair (~1989) History of prostate surgery (~2017) X'2 S/P cataract surgery (~03/2019) Family History Father Cancer of kidney Prostate cancer, Onset Age: 72 Daughter Mentally disabled Mother Ovarian cancer, Onset Age: 32 Social History Smoking Status: Former smoker Alcohol Intake Frequency: does not drink Substance Use: does not use Exam Narrative Narrative: Narrative: General Limitations: altered mental status General appearance: Present alert and in no apparent distress; Absent anxious, appears intoxicated or sleepy Head Head: Present atraumatic and normocephalic Eye Eye: Present EOMI; Absent scleral icterus or nystagmus ENT ENT: Present mucous membranes moist; Absent nasal congestion Neck Neck: Present full ROM; Absent tenderness Chest Chest: Present normal inspection and symmetric chest wall rise; Absent t enderness Respiratory Respiratory: Present normal lung sounds bilaterally; Absent respiratory distress or accessory muscle use Cardiovascular Cardiovascular: Present regular rate, normal rhythm and normal heart sounds Adbominal Abdominal: Present soft and normal bowel sounds; Absent distention or tenderness Extremities Extremities: Present normal inspection and full ROM; Absent tenderness Back Back: Present normal inspection and full ROM; Absent tenderness Neurological Neurological: Present alert and oriented X3; Absent motor sensory deficit Psychiatric Psychiatric: Present normal affect and normal mood Skin Skin: Present warm (WNL), dry and normal color Course Vital Signs Vital signs: Vital Signs Temperature 98.8 F 07/17/22 13:18 Pulse Rate 68 07/17/22 13:18 Respiratory Rate 19 07/17/22 13:18 Blood Pressure 139/69 07/17/22 13:18 Pulse Oximetry (%) 95 07/17/22 13:18 Oxygen Delivery Method Room Air 07/17/22 13:18 Temperature 99.8 F H 07/21/22 15:41 Pulse Rate 74 07/21/22 15:41 Respiratory Rate 20 07/21/22 15:41 Blood Pressure 171/88 07/21/22 15:41 Pulse Oximetry (%) 92 07/21/22 15:41 Oxygen Delivery Method Room Air 07/21/22 15:41 MDM MDM Narrative Medical decision making narrative: Narrative: Patient is an 86-year-old male who presents to the emergency department due to worsening generalized weakness, shortness of breath, and cough. Differential diagnoses include new viral infection, bacterial pneumonia, urinary tract infection, electrolyte abnormality, dehydration. Patient's labs do demonstrate a leukocytosis. Chest x-ray demonstrates a left lower lobe pneumonia. Patient's curb 65 score is 3. He has received ceftriaxone and azithromycin. I have spoken to Dr. Gordon who has agreed to see and evaluate patient for admission. Lab Data 07/20/22 06:16 07/20/22 06:16 Labs: Lab Results 07/17/22 07/17/22 07/17/22 Range/Units 14:05 14:06 14:09 WBC 14.5 H (4.5-11.0) K/mcL RBC 4.62 L (4.63-6.08) M/mcL Hgb 14.6 (13.7-17.5) g/dL Hct 44.0 (40.1-51.0) % POC Hct 45.0 (41-55) MCV 95.2 (80.0-100.0) fL MCH 31.6 (26.0-34.0) pg MCHC 33.2 (31.0-36.0) g/dL RDW 13.7 (11.5-14.5) % Plt Count 196 (140-440) K/mcL MPV 11.5 (8.8-12.5) fL Immature Gran % (Auto) 0.5 (0.0-0.5) % Neut % (Auto) 88.1 H (38.0-78.0) % Lymph % (Auto) 4.8 L (15.5-49.0) % [place] % (Auto) 6.4 (1.0-12.0) % Eos % (Auto) 0.1 (0.0-7.0) % Baso % (Auto) 0.1 (0.0-2.0) % Lymph # (Auto) 0.70 L (1.50-4.80) K/mcL [place] # (Auto) 0.92 H (0.10-0.90) K/mcL Eos # (Auto) 0.01 (0.00-0.70) K/mcL Baso # (Auto) 0.01 (0.00-0.30) K/mcL Immature Gran # 0.07 H (0.00-0.05) K/mcl Absolute Neutrophils 12.75 H (1.80-8.00) K/mcL POC Sodium 144 (133-145) POC Potassium 4.0 (3.3-5.1) POC Chloride 108 (96-108) POC Total CO2 25.0 (22-30) POC BUN 26 H (6-20) POC Creatinine 1.0 (0.6-1.2) POC Glucose 110 H (70-105) POC WB Ioniz Calcium 1.18 (1.16-1.32) Total Bilirubin 1.3 H (0.1-1.0) mg/dL Direct Bilirubin 0.5 H (<0.3) mg/dL AST 13 (<40) U/L ALT 12 (<40) U/L Alkaline Phosphatase 90 (39-117) U/L Total Protein 6.7 (5.9-8.4) gm/dL Albumin 3.2 (3.2-5.2) gm/dL Globulin 3.5 (2.2-3.7) gm/dL Discharge Plan Patient/Caregiver Discharge Instructions Pt seen by DRAWING MACHINE OPERATOR/PA only: No Clinical Impression: Pneumonia Activity: increase activity as tolerated Patient Disposition: Xfer As Inpt ([facility]) Discharge Date/Time: 07/17/22 20:02
[2022-07-17 14:12] LABS: POC Calcium, Ionized 1.18 (1.16-1.32)
[2022-07-17] MEDS ORDERED: LACTATED RINGERS 1,000 ML IV ONE (14:29)
[2022-07-17 14:39] LABS: Basophils # (Auto) 0.01 K/mcL (0.00-0.30); Basophils % (Auto) 0.1 % (0.0-2.0); Eosinophils # (Auto) 0.01 K/mcL (0.00-0.70); Eosinophils % (Auto) 0.1 % (0.0-7.0); Hemoglobin 14.6 g/dL (13.7-17.5); Lymphocytes % (Auto) 4.8 % (15.5-49.0); Mean Cell Volume 95.2 fL (80.0-100.0); Mean Corpuscular HGB Conc 33.2 g/dL (31.0-36.0); Mean Platelet Volume 11.5 fL (8.8-12.5); Monocytes # (Auto) 0.92 K/mcL (0.10-0.90); Monocytes % (Auto) 6.4 % (1.0-12.0); Neutrophils % (Auto) 88.1 % (38.0-78.0); Platelet Count 196 K/mcL (140-440); RBC 4.62 M/mcL (4.63-6.08); Red Cell Distribution Width 13.7 % (11.5-14.5); WBC 14.5 K/mcL (4.5-11.0)
--- NOTE | 2022-07-17 14:42 | XRay Report ---
HISTORY: Worsening productive cough, Covid positive FINDINGS: There is a small to moderate-sized alveolar infiltrate posteriorly and medially in the left lower lobe and there is a band of discoid atelectasis above the left costophrenic sulcus. This is new since 07/15/22. The right lung is clear. The heart size is normal. No adenopathy is detected. IMPRESSION: New onset left lower lobe pneumonia Interpreted and Authenticated by: Steve Trotter 07/17/22
[2022-07-17] MEDS ORDERED: cefTRIAXone 1 GM VIAL IV ONE (14:47)
[2022-07-17] MEDS ORDERED: AZITHROMYCIN 500 MG in DEXTROSE 5% IN WATER 250 ML IV ONE (14:47)
[2022-07-17 15:13] LABS: ALT/SGPT 12 U/L (<40); AST/SGOT 13 U/L (<40); Albumin 3.2 gm/dL (3.2-5.2); Alkaline Phosphatase 90 U/L (39-117); Bilirubin,Direct 0.5 mg/dL (<0.3); Bilirubin,Total 1.3 mg/dL (0.1-1.0); Globulin 3.5 gm/dL (2.2-3.7)
--- NOTE | 2022-07-17 16:33 | Internal Med History&Physical ---
HPI History of Present Illness Patient information: Note initiated : 07/17/22 at 4:26 pm Service Date, if different from initiated Date: [] Patient: Juan Cantrell a 86 y/o M admitted on for AMS. Chief Complaint: [general weakness] Chief complaint: general weakness History of present illness: Mr. Cantrell is a 86 year old M history of essential hypertensions and dyslipidemia, presenting with general weakness. Patient was hospitalized in our facility for COVID-pneumonia and was eventually discharged a week ago with home health service. Home health service check on the patient earlier today and saw the patient's did not appear to be well and prompted him to come to the ED for further evaluations. Patient is coming of general weakness, productive cough with yellow sputum, chills, and lack of appetite. He denies having any focal pain. He denies having fever. He denies having shortness of breath at the moment. Vital signs within normal limits and he is tolerating room air. Labs significant for leukocytosis with WBC 14.5. Lactic acid, procalcitonin pending. Chest x-ray showing new onset left lower lobe pneumonia. Admission request is called for healthcare associated pneumonia. Constitutional Constitutional: Present chills and weakness; Absent excessive sweating, fatigue or fever(s) EENT Eyes: Absent blurry vision, change in vision, loss of vision or other visual disturbances Ears: Absent decreased hearing or tinnitus Nose, mouth and throat: Absent abnormal hearing, dry mouth, headache(s), nasal congestion or sore throat Cardiovascular Cardiovascular: Absent chest pain, chest pain at rest, edema, irregular heart rhythm or palpatations Respiratory Respiratory: Present cough and excessive phlegm production; Absent dyspnea or wheezing Gastrointestinal Gastrointestinal: Absent abdominal pain, constipation, diarrhea, nausea or vomiting Musculoskeletal Musculoskeletal: Absent back pain, deformity, limited range of motion, muscle cramps, muscle weakness or numbness Integumentary Integumentary: Absent lesions, rash or wounds Neurological Neurological: Absent focal weakness, headache(s) or numbness Psychiatric Psychiatric: Absent anxiety, depression or hallucinations PFSH PFSH All Active Problems (Updated 07/17/22 @ 16:37 by Masood Gordon MD) Hospital-acquired pneumonia (Acute) COVID-19 (Acute) Influenza A (Acute) Stage II pressure ulcer of sacral region (Acute) Acute deep vein thrombosis (DVT) of left lower extremity (Acute) Edema of left lower extremity (Acute) CVA (cerebral vascular accident) (Acute) Arrhythmia (Acute) Sinus bradycardia (Acute) Syncope and collapse (Acute) Weakness (Acute) Head injury (Acute) Age-related cognitive decline (Acute) Right hand pain (Acute) Fall (Acute) Facial pain (Acute) 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 (Acute) Pain of right tibia (Acute) Medicare annual wellness visit, subsequent (Acute) History of hernia repair (Chronic ~1989) Psoriasis (Chronic) Other hammer toe(s) (acquired), 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 History of prostate cancer Hyperlipidemia Irritable bowel syndrome with diarrhea Kidney stones Medicare annual wellness visit, subsequent Mumps Other hammer toe(s) (acquired), right foot Prostate cancer Status post high-dose brachytherapy in July 2017. Continues to follow with urology, Dr. Breen, with PSA every 6 months. Psoriasis Managed by Dr[facility] at [facility] [place]. He uses multiple strengths different topical steroid medications Surgical History History of hernia repair (~1989) History of prostate surgery (~2017) X'2 S/P cataract surgery (~03/2019) Family History Father Cancer of kidney Prostate cancer, Onset Age: 72 Daughter Mentally disabled Mother Ovarian cancer, Onset Age: 32 Social History marital status: smoking status: Former smoker smoking status stop date: 05/25/1964 alcohol intake frequency: does not drink substance use type: does not use MEDS/ALLERGIES Home Medications and Allergies Home Medications Medication Instructions Recorded Confirmed Type aspirin 81 mg chewable tablet 81 mg PO QDAY 10/28/21 07/14/22 History amlodipine 2.5 mg tablet 2.5 mg PO QDAY #90 tabs 01/20/22 07/14/22 Rx ramipril 5 mg capsule 5 mg PO QDAY #90 caps 01/20/22 07/14/22 Rx atorvastatin 40 mg tablet 40 mg PO QHS #90 tabs 06/16/22 07/14/22 Rx Allergies Allergy/AdvReac Type Severity Reaction Status Date / Time No Known Drug Allergies Allergy Verified 07/17/22 13:20 EXAM Constitutional Vitals: Temp Pulse Resp BP Pulse Ox O2 Del Method 37.1 C 74 19 124/77 90 Room Air 07/17/22 13:18 07/17/22 14:02 07/17/22 13:18 07/17/22 14:02 07/17/22 14:02 07/17/22 13:18 General appearance: cooperative, disheveled and mild distress Head Head exam: Present atraumatic and normocephalic Eye Eye exam: Present EOMI and PERRL ENT ENT exam: Present mucous membranes moist, normal exam and normal external ear exam Neck Neck exam: Present normal inspection; Absent lymphadenopathy, tenderness or thyromegaly Respiratory Respiratory exam: Present rhonchi; Absent accessory muscle use, respiratory distress or wheezes Cardiovascular Cardiovascular exam: Present normal rate and rhythm; Absent JVD GI/Abdominal GI/Abdominal exam: Present normal bowel sounds and soft; Absent organomegaly or tenderness Rectal Rectal exam: Present deferred Extremities Exam Extremities exam: Present full ROM, normal capillary refill and normal inspection; Absent tenderness Neurological Exam Neurological exam: Present alert, CN II-XII intact and oriented X3; Absent motor sensory deficit Psychiatric Psychiatric exam: Present normal affect and normal mood; Absent anxious or depressed Skin Skin exam: Present dry and intact DATA Data Completed and Pending Labs: Labs from last 24 hours 07/17/22 07/17/22 07/17/22 14:09 14:06 14:05 WBC 14.5 H RBC 4.62 L Hgb 14.6 Hct 44.0 POC Hct 45.0 MCV 95.2 MCH 31.6 MCHC 33.2 RDW 13.7 Plt Count 196 MPV 11.5 Immature Gran % (Auto) 0.5 Neut % (Auto) 88.1 H Lymph % (Auto) 4.8 L [place] % (Auto) 6.4 Eos % (Auto) 0.1 Baso % (Auto) 0.1 Lymph # (Auto) 0.70 L [place] # (Auto) 0.92 H Eos # (Auto) 0.01 Baso # (Auto) 0.01 Immature Gran # 0.07 H Absolute Neutrophils 12.75 H POC Sodium 144 POC Potassium 4.0 POC Chloride 108 POC Total CO2 25.0 POC BUN 26 H POC Creatinine 1.0 POC Glucose 110 H POC WB Ioniz Calcium 1.18 Total Bilirubin 1.3 H Direct Bilirubin 0.5 H AST 13 ALT 12 Alkaline Phosphatase 90 Total Protein 6.7 Albumin 3.2 Globulin 3.5 A/P Assessment and plan (1) Hospital-acquired pneumonia: Status: Acute (2) Hyperlipidemia: Status: Chronic (3) Essential (primary) hypertension: Status: Chronic Narrative A/P Narrative: Assessment and Plans: 1. Hospital acquired pneumonia: Inpatient med surg Supplemental oxygen therapy as needed to titrate spo2>=92% Serial lactic acid Procalcitonin level MRSA screening Blood culture cbc w/ auto diff in the morning to trend WBC Vancomycin Zosyn NS@100cc/hr Tylenol DuoNEB Robitussin DM Physical therapy evaluation and treatment 2. Essential hypertension: Amlodipine Ramipril or other ELEANOR-i/ARB 3. Hyperlipidemia: Lipitor GI ppx: not currently indicated DVT ppx: Lovenox Code status: Full Prognosis: guarded Disposition: inpatient med surg; PT Time Spent With Patient Time: Total time spent is greater than 50% in coordination of care (as documented) at patient's floor/unit and/or counseling patient: Initial: Total time with patient: 55 - 74 minutes
[2022-07-17] MEDS ORDERED: ONDANSETRON 4 MG/2 ML VIAL IV PRN (20:22)
[2022-07-17] MEDS ORDERED: guaiFENesin/DEXTROMETHORPHAN 5ML UD CUP PO PRN (20:22)
[2022-07-17] MEDS ORDERED: VANCOMYCIN PER PHARMACY IV ONE (20:22)
[2022-07-17] MEDS ORDERED: IPRATROPIUM/ALBUTEROL 3 ML AMPUL.NEB NEB PRN (20:22)
[2022-07-17] MEDS: DOCUSATE SODIUM 100 MG CAPSULE PO SCH (22:31)
[2022-07-17] MEDS: SENNOSIDES 1 TABLET PO SCH (22:31)
[2022-07-17] MEDS: 0.9 % SODIUM CHLORIDE 1,000 ML IV SCH (22:46)
[2022-07-17] MEDS: PIPERACILLIN SODIUM/TAZOBACTAM 3.375 GM in DEXTROSE 5% IN WATER 50 ML IV SCH (22:47)
[2022-07-17] MEDS: 0.9 % SODIUM CHLORIDE 10 ML SYRINGE IV SCH (22:48)
[2022-07-18] MEDS: PIPERACILLIN SODIUM/TAZOBACTAM 3.375 GM in DEXTROSE 5% IN WATER 50 ML IV SCH ×5 (01:30→23:27)
[2022-07-18] MEDS: 0.9 % SODIUM CHLORIDE 1,000 ML IV SCH ×4 (05:12→22:08)
[2022-07-18] MEDS: 0.9 % SODIUM CHLORIDE 10 ML SYRINGE IV SCH ×4 (05:28→21:58)
[2022-07-18] MEDS ORDERED: VANCOMYCIN PER PHARMACY IV SCH (07:00)
[2022-07-18 07:30] LABS: Basophils # (Auto) 0.02 K/mcL (0.00-0.30); Basophils % (Auto) 0.2 % (0.0-2.0); Eosinophils # (Auto) 0.03 K/mcL (0.00-0.70); Eosinophils % (Auto) 0.2 % (0.0-7.0); Hematocrit 40.6 % (40.1-51.0); Hemoglobin 13.7 g/dL (13.7-17.5); Lymphocytes # (Auto) 0.72 K/mcL (1.50-4.80); Mean Cell Volume 95.8 fL (80.0-100.0); Mean Corpuscular HGB Conc 33.7 g/dL (31.0-36.0); Mean Platelet Volume 11.5 fL (8.8-12.5); Monocytes # (Auto) 0.73 K/mcL (0.10-0.90); Neutrophils % (Auto) 87.3 % (38.0-78.0); Platelet Count 175 K/mcL (140-440); RBC 4.24 M/mcL (4.63-6.08); Red Cell Distribution Width 13.5 % (11.5-14.5); WBC 12.1 K/mcL (4.5-11.0)
[2022-07-18 08:31] LABS: ALT/SGPT 13 U/L (<40); AST/SGOT 18 U/L (<40); Albumin 2.7 gm/dL (3.2-5.2); Albumin/Globulin Ratio 0.9 (1.0-2.3); Alkaline Phosphatase 77 U/L (39-117); Bilirubin,Total 1.3 mg/dL (0.1-1.0); Blood Urea Nitrogen 20 mg/dL (8-23); Calcium 8.2 mg/dL (8.6-10.4); Carbon Dioxide 23 mmol/L (22-30); Chloride 108 mmol/L (96-108); Globulin 3.1 gm/dL (2.2-3.7); Glomerular Filtration Rate 81; Glucose 110 mg/dL (70-105)
[2022-07-18] MEDS: DOCUSATE SODIUM 100 MG CAPSULE PO SCH ×2 (09:02→20:31)
[2022-07-18] MEDS: ENOXAPARIN 40 MG/0.4 ML SYRINGE SQ SCH (10:15)
[2022-07-18] MEDS: VANCOMYCIN 1,000 MG in 0.9 % SODIUM CHLORIDE 250 ML IV SCH ×2 (10:26)
[2022-07-18 11:33] LABS: Appearance,Urine CLOUDY (Clear); Bilirubin,Urine Negative (Negative); Color,Urine AMBER; Culture Indicated,Urine No; Glucose,Urine (UA) Negative (Negative); Ketones,Urine Negative (Negative); Leukocyte Esterase,Urine Negative /uL (Negative); Mucus,Urine FEW /hpf; Nitrate,Urine Negative (Negative); Protein,Urine 30 mg/dL (Negative); Specific Gravity,Urine 1.029 (1.000-1.035); Urine Blood Negative (Negative); Urine RBC 1 /hpf (0-3); Urine Squamous Epithelial Cell 0 /hpf (0-4); Urine WBC 3 /hpf (0-4)
--- NOTE | 2022-07-18 14:49 | Internal Med Progress Note ---
SUBJECTIVE Subjective Patient information: Note initiated : 07/18/22 at 2:48 pm Service Date, if different from initiated Date: [] Patient: Juan Cantrell a 86 y/o M admitted on 07/17/22 for AMS. Chief Complaint: [] Interval history: Mr. Cantrell is a 86 year old M history of essential hypertensions and dyslipidemia, presenting with general weakness. Patient was hospitalized in our facility for COVID-pneumonia and was eventually discharged a week ago with home health service. Home health service check on the patient earlier today and saw the patient's did not appear to be well and prompted him to come to the ED for further evaluations. Patient is coming of general weakness, productive cough with yellow sputum, chills, and lack of appetite. He denies having any focal pain. He denies having fever. He denies having shortness of breath at the moment. Vital signs within normal limits and he is tolerating room air. Labs significant for leukocytosis with WBC 14.5. Lactic acid, procalcitonin pending. Chest x-ray showing new onset left lower lobe pneumonia. Admission request is called for healthcare associated pneumonia. 07/18: Patient remains on room air. Patient remained afebrile overnight. WBC down from 14.5 at time of admission to 12.1 this morning. MRSA screening negative. Blood culture no growth to date. Supplemental oxygen therapy as needed. Discontinue vancomycin, continue Zosyn while waiting for culture result. Continue normal saline at 100 cc/h. Physical therapist recommend SNF placement upon stabilization. Constitutional Vitals: Vital Signs Temp Pulse Resp BP Pulse Ox O2 Del Method 36.3 C 66 16 129/69 95 Room Air 07/18/22 11:48 07/18/22 11:48 07/18/22 11:48 07/18/22 11:48 07/18/22 11:48 07/18/22 11:48 Period Temp Pulse Resp BP Sys/Devine Pulse Ox O2 Del Method O2 Flow Rate Last 24 Hr 36.3 C-37.1 C 66-81 16-20 114-143/57-82 90-99 Room Air-Room Air Intake and Output 07/18/22 07/18/22 07/18/22 03:59 11:59 19:59 Intake Total 550 1302 50 Output Total 450 275 Balance 100 1027 50 Weight 70.806 kg Intake & Output: Intake & Output 07/18/22 07/18/22 07/18/22 03:59 11:59 19:59 Intake Total 550 1302 50 Output Total 450 275 Balance 100 1027 50 Weight 70.806 kg Intake: IV 350 1302 50 Sodium Chloride 0.9% 1,000 ml @ 1002 100 mls/hr IV .Q10H [facility] Rx#: [id number] Zosyn 3.375 gm In Dextrose 5% 100 50 50 in Water 50 ml @ 100 mls/hr IV Q6H [facility] Rx#:[id number] Vancomycin 1,000 mg In Sodium 250 250 Chloride 0.9% 250 ml @ 250 mls/ hr IV Q12H [facility] Rx#:[id number] Oral 200 Output: Void Amount 450 275 # of times incontinent of urine 0 Other: Meal Breakfast Percent of Meal Consumed Bites Feeding Ability Assist with Tray Set Up Urine Appearance Clear Urine Color Yellow Dark Yellow Urine Odor Normal Stool Size Smear Stool Color Brown Stool Consistency Soft # Voids 0 # Bowel Movements 0 # of times incontinent of 0 Bowels Head Head exam: Present atraumatic and normal inspection Eye Eye exam: Present normal appearance ENT ENT exam: Present mucous membranes moist, normal exam and normal external ear exam Neck Neck exam: Present normal inspection Respiratory Respiratory exam: Present rhonchi Cardiovascular Cardiovascular exam: Present normal rate and rhythm GI/Abdominal GI/Abdominal exam: Present normal bowel sounds Back Exam Back exam: Present normal inspection Neurological Exam Neurological exam: Present alert and oriented X3 Skin Skin exam: Present intact and warm OBJ DATA Labs 07/18/22 05:15 07/18/22 05:15 Labs: Abnormal Lab Results 07/18/22 07/18/22 07/18/22 09:00 05:15 05:15 WBC 12.1 H RBC 4.24 L Neut % (Auto) 87.3 H Lymph % (Auto) 6.0 L Lymph # (Auto) 0.72 L [place] # (Auto) Immature Gran # Absolute Neutrophils 10.55 H POC BUN Glucose 110 H POC Glucose Calcium 8.2 L Total Bilirubin 1.3 H Direct Bilirubin Total Protein 5.8 L Albumin 2.7 L Albumin/Globulin Ratio 0.9 L Procalcitonin Urine Appearance Cloudy A Urine Protein 30 A Urine Urobilinogen 4.0 A Urine Mucus Few A 07/17/22 07/17/22 07/17/22 20:46 14:09 14:06 WBC 14.5 H RBC 4.62 L Neut % (Auto) 88.1 H Lymph % (Auto) 4.8 L Lymph # (Auto) 0.70 L [place] # (Auto) 0.92 H Immature Gran # 0.07 H Absolute Neutrophils 12.75 H POC BUN 26 H Glucose POC Glucose 110 H Calcium Total Bilirubin Direct Bilirubin Total Protein Albumin Albumin/Globulin Ratio Procalcitonin 0.14 H Urine Appearance Urine Protein Urine Urobilinogen Urine Mucus 07/17/22 14:05 WBC RBC Neut % (Auto) Lymph % (Auto) Lymph # (Auto) [place] # (Auto) Immature Gran # Absolute Neutrophils POC BUN Glucose POC Glucose Calcium Total Bilirubin 1.3 H Direct Bilirubin 0.5 H Total Protein Albumin Albumin/Globulin Ratio Procalcitonin Urine Appearance Urine Protein Urine Urobilinogen Urine Mucus Meds: Medications Albuterol/Ipratropium (Ipratropium/Albuterol 3 Ml Ampul.Neb) 3 ml NEB Q4HRT PRN PRN Reason: Wheezing Docusate Sodium (Docusate Sodium 100 Mg Capsule) 100 mg PO BID [facility] Last Admin: 07/18/22 09:02 Dose: Not Given Enoxaparin Sodium (Enoxaparin 40 Mg/0.4 Ml Syringe) 40 mg SQ DAILY [facility] Last Admin: 07/18/22 10:15 Dose: 40 mg Guaifenesin (Guaifenesin/Dextromethorphan 5ml Ud Cup) 10 ml PO Q4HP PRN PRN Reason: Cough Last Admin: 07/18/22 04:05 Dose: 10 ml Sodium Chloride (Sodium Chloride 0.9%) 1,000 mls @ 100 mls/hr IV .Q10H [facility] Last Infusion: 07/18/22 11:28 Dose: 100 mls/hr Piperacillin Sod/Tazobactam (Sod 3.375 gm/ Dextrose) 50 mls @ 100 mls/hr IV Q6H [facility]; Protocol Last Infusion: 07/18/22 12:26 Dose: Infused Ondansetron HCl (Ondansetron 4 Mg/2 Ml Vial) 4 mg IV Q6HP PRN PRN Reason: Nausea And Vomiting Senna (Sennosides 1 Tablet) 2 tab PO HS [facility] Last Admin: 07/17/22 22:31 Dose: Not Given Sodium Chloride (0.9 % Sodium Chloride 10 Ml Syringe) 10 ml IV Q8 [facility] Last Admin: 07/18/22 12:35 Dose: Not Given A/P Assessment and plan (1) Hospital-acquired pneumonia: Status: Acute (2) Hyperlipidemia: Status: Chronic (3) Essential (primary) hypertension: Status: Chronic Narrative A/P Narrative: Assessment and Plans: 1. Hospital acquired pneumonia: Inpatient med surg Supplemental oxygen therapy as needed to titrate spo2>=92% Serial lactic acid 1.4 Procalcitonin level 0.14 MRSA screening negative, discontinue Vancomycin Blood culture, no growth to date cbc w/ auto diff in the morning to trend WBC Continue Zosyn NS@100cc/hr Tylenol DuoNEB Robitussin DM Physical therapist recommend SNF placement upon stabilization 2. Essential hypertension: Amlodipine Ramipril or other ELEANOR-i/ARB 3. Hyperlipidemia: Lipitor GI ppx: not currently indicated DVT ppx: Lovenox Code status: Full Prognosis: guarded Disposition: inpatient med surg; SNF Time Spent With Patient Time: Total time spent is greater than 50% in coordination of care (as documented) at patient's floor/unit and/or counseling patient: Subsequent: Total time with patient: 35 - 49 minutes QUALITY Stroke Symptom Onset Unknown: No VTE Deep Vein Thrombosis/Pulmonary Embolism Present on Admission: No
[2022-07-18] MEDS: SENNOSIDES 1 TABLET PO SCH (20:31)
[2022-07-19] MEDS: 0.9 % SODIUM CHLORIDE 1,000 ML IV SCH ×4 (02:39→23:52)
[2022-07-19] MEDS: PIPERACILLIN SODIUM/TAZOBACTAM 3.375 GM in DEXTROSE 5% IN WATER 50 ML IV SCH ×4 (05:34→23:50)
[2022-07-19] MEDS: 0.9 % SODIUM CHLORIDE 10 ML SYRINGE IV SCH ×3 (05:36→21:19)
[2022-07-19 08:23] LABS: Basophils # (Auto) 0.01 K/mcL (0.00-0.30); Basophils % (Auto) 0.1 % (0.0-2.0); Eosinophils # (Auto) 0.04 K/mcL (0.00-0.70); Eosinophils % (Auto) 0.3 % (0.0-7.0); Hematocrit 38.2 % (40.1-51.0); Hemoglobin 12.9 g/dL (13.7-17.5); Lymphocytes # (Auto) 0.85 K/mcL (1.50-4.80); Lymphocytes % (Auto) 6.9 % (15.5-49.0); Mean Corpuscular HGB Conc 33.8 g/dL (31.0-36.0); Mean Platelet Volume 11.9 fL (8.8-12.5); Monocytes % (Auto) 4.9 % (1.0-12.0); Neutrophils % (Auto) 87.4 % (38.0-78.0); Platelet Count 185 K/mcL (140-440); RBC 3.98 M/mcL (4.63-6.08); Red Cell Distribution Width 13.4 % (11.5-14.5); WBC 12.3 K/mcL (4.5-11.0)
[2022-07-19 08:40] LABS: ALT/SGPT 11 U/L (<40); AST/SGOT 13 U/L (<40); Albumin 2.4 gm/dL (3.2-5.2); Albumin/Globulin Ratio 0.8 (1.0-2.3); Alkaline Phosphatase 81 U/L (39-117); Bilirubin,Total 1.2 mg/dL (0.1-1.0); Blood Urea Nitrogen 16 mg/dL (8-23); Calcium 7.9 mg/dL (8.6-10.4); Carbon Dioxide 21 mmol/L (22-30); Chloride 110 mmol/L (96-108); Globulin 3.1 gm/dL (2.2-3.7); Glomerular Filtration Rate 81; Glucose 97 mg/dL (70-105)
[2022-07-19] MEDS: DOCUSATE SODIUM 100 MG CAPSULE PO SCH ×2 (11:17→21:19)
[2022-07-19] MEDS: ENOXAPARIN 40 MG/0.4 ML SYRINGE SQ SCH (12:56)
--- NOTE | 2022-07-19 13:50 | Internal Med Progress Note ---
SUBJECTIVE Subjective Patient information: Note initiated : 07/19/22 at 1:45 pm Service Date, if different from initiated Date: [] Patient: Juan Cantrell a 86 y/o M admitted on 07/17/22 for AMS. Chief Complaint: [] Interval history: Mr. Cantrell is a 86 year old M history of essential hypertensions and dyslipidemia, presenting with general weakness. Patient was hospitalized in our facility for COVID-pneumonia and was eventually discharged a week ago with home health service. Home health service check on the patient earlier today and saw the patient's did not appear to be well and prompted him to come to the ED for further evaluations. Patient is coming of general weakness, productive cough with yellow sputum, chills, and lack of appetite. He denies having any focal pain. He denies having fever. He denies having shortness of breath at the moment. Vital signs within normal limits and he is tolerating room air. Labs significant for leukocytosis with WBC 14.5. Lactic acid, procalcitonin pending. Chest x-ray showing new onset left lower lobe pneumonia. Admission request is called for healthcare associated pneumonia. 07/18: Patient remains on room air. Patient remained afebrile overnight. WBC down from 14.5 at time of admission to 12.1 this morning. MRSA screening negative. Blood culture no growth to date. Supplemental oxygen therapy as needed. Discontinue vancomycin, continue Zosyn while waiting for culture result. Continue normal saline at 100 cc/h. Physical therapist recommend SNF placement upon stabilization. 07/19: Low grade fever Tmax 37.3 this morning. On room air. Patient finished maybe half of his lunch to provide it. WBC 12.3 this morning. Blood culture no growth to date. Patient denies shortness of breath, cough, or wheezing. He denies fever, chills, or diaphoresis. He still has a poor appetite and is still commenting of general weakness. Supplemental oxygen therapy as needed. Continue Zosyn while waiting for culture results. Continue normal saline at 100 cc/h, consider to saline lock the patient once his appetite improved. Pending SNF placement. Constitutional Vitals: Vital Signs Temp Pulse Resp BP Pulse Ox O2 Del Method 37.3 C H 58 L 16 141/62 91 Room Air 07/19/22 04:00 07/19/22 04:00 07/19/22 04:00 07/19/22 04:00 07/19/22 04:00 07/19/22 04:00 Period Temp Pulse Resp BP Sys/Devine Pulse Ox O2 Del Method O2 Flow Rate Last 24 Hr 36.4 C-37.3 C 53-68 14-24 133-145/60-70 91-94 Room Air-Room Air Intake and Output 07/19/22 07/19/22 07/19/22 03:59 11:59 19:59 Intake Total 1048 100 Output Total 200 175 Balance 848 -75 Intake & Output: Intake & Output 07/19/22 07/19/22 07/19/22 03:59 11:59 19:59 Intake Total 1048 100 Output Total 200 175 Balance 848 -75 Intake: IV 1048 50 Sodium Chloride 0.9% 1,000 ml @ 998 100 mls/hr IV .Q10H [facility] Rx#: [id number] Zosyn 3.375 gm In Dextrose 5% 50 50 in Water 50 ml @ 100 mls/hr IV Q6H [facility] Rx#:[id number] Oral 50 Output: Void Amount 200 175 Other: Urine Appearance Clear Clear Urine Color Yellow Dark Yellow Stool Size Moderate Stool Color Brown Stool Consistency Soft Head Head exam: Present atraumatic and normal inspection Eye Eye exam: Present normal appearance ENT ENT exam: Present mucous membranes moist, normal exam and normal external ear exam Neck Neck exam: Present normal inspection Respiratory Respiratory exam: Present normal respiratory exam Cardiovascular Cardiovascular exam: Present normal rate and rhythm GI/Abdominal GI/Abdominal exam: Present normal bowel sounds Back Exam Back exam: Present normal inspection Neurological Exam Neurological exam: Present alert and oriented X3 Skin Skin exam: Present intact and warm OBJ DATA Labs 07/19/22 06:46 07/19/22 06:46 Labs: Abnormal Lab Results 07/19/22 07/19/22 07/18/22 06:46 06:46 09:00 WBC 12.3 H RBC 3.98 L Hgb 12.9 L Hct 38.2 L Neut % (Auto) 87.4 H Lymph % (Auto) 6.9 L Lymph # (Auto) 0.85 L [place] # (Auto) Immature Gran # Absolute Neutrophils 10.77 H Chloride 110 H Carbon Dioxide 21 L POC BUN Glucose POC Glucose Calcium 7.9 L Total Bilirubin 1.2 H Direct Bilirubin Total Protein 5.5 L Albumin 2.4 L Albumin/Globulin Ratio 0.8 L Procalcitonin Urine Appearance Cloudy A Urine Protein 30 A Urine Urobilinogen 4.0 A Urine Mucus Few A 07/18/22 07/18/22 07/17/22 05:15 05:15 20:46 WBC 12.1 H RBC 4.24 L Hgb Hct Neut % (Auto) 87.3 H Lymph % (Auto) 6.0 L Lymph # (Auto) 0.72 L [place] # (Auto) Immature Gran # Absolute Neutrophils 10.55 H Chloride Carbon Dioxide POC BUN Glucose 110 H POC Glucose Calcium 8.2 L Total Bilirubin 1.3 H Direct Bilirubin Total Protein 5.8 L Albumin 2.7 L Albumin/Globulin Ratio 0.9 L Procalcitonin 0.14 H Urine Appearance Urine Protein Urine Urobilinogen Urine Mucus 07/17/22 07/17/22 07/17/22 14:09 14:06 14:05 WBC 14.5 H RBC 4.62 L Hgb Hct Neut % (Auto) 88.1 H Lymph % (Auto) 4.8 L Lymph # (Auto) 0.70 L [place] # (Auto) 0.92 H Immature Gran # 0.07 H Absolute Neutrophils 12.75 H Chloride Carbon Dioxide POC BUN 26 H Glucose POC Glucose 110 H Calcium Total Bilirubin 1.3 H Direct Bilirubin 0.5 H Total Protein Albumin Albumin/Globulin Ratio Procalcitonin Urine Appearance Urine Protein Urine Urobilinogen Urine Mucus Meds: Medications Albuterol/Ipratropium (Ipratropium/Albuterol 3 Ml Ampul.Neb) 3 ml NEB Q4HRT PRN PRN Reason: Wheezing Amlodipine Besylate (Amlodipine 5 Mg Tablet) 2.5 mg PO DAILY [facility] Aspirin (Aspirin 81 Mg Tab.Chew) 81 mg PO DAILY [facility] Atorvastatin Calcium (Atorvastatin 40 Mg Tablet) 40 mg PO QHS [facility] Docusate Sodium (Docusate Sodium 100 Mg Capsule) 100 mg PO BID [facility] Last Admin: 07/19/22 11:17 Dose: Not Given Enoxaparin Sodium (Enoxaparin 40 Mg/0.4 Ml Syringe) 40 mg SQ DAILY [facility] Last Admin: 07/19/22 12:56 Dose: 40 mg Guaifenesin (Guaifenesin/Dextromethorphan 5ml Ud Cup) 10 ml PO Q4HP PRN PRN Reason: Cough Last Admin: 07/18/22 04:05 Dose: 10 ml Sodium Chloride (Sodium Chloride 0.9%) 1,000 mls @ 100 mls/hr IV .Q10H [facility] Last Admin: 07/19/22 02:39 Dose: Not Given Piperacillin Sod/Tazobactam (Sod 3.375 gm/ Dextrose) 50 mls @ 100 mls/hr IV Q6H [facility]; Protocol Last Admin: 07/19/22 12:47 Dose: 100 mls/hr Ondansetron HCl (Ondansetron 4 Mg/2 Ml Vial) 4 mg IV Q6HP PRN PRN Reason: Nausea And Vomiting Ramipril (Ramipril 5 Mg Capsule) 5 mg PO QDAY [facility] Senna (Sennosides 1 Tablet) 2 tab PO HS [facility] Last Admin: 07/18/22 20:31 Dose: Not Given Sodium Chloride (0.9 % Sodium Chloride 10 Ml Syringe) 10 ml IV Q8 [facility] Last Admin: 07/19/22 05:36 Dose: Not Given A/P Assessment and plan (1) Hospital-acquired pneumonia: Status: Acute (2) Hyperlipidemia: Status: Chronic (3) Essential (primary) hypertension: Status: Chronic Narrative A/P Narrative: Assessment and Plans: 1. Hospital acquired pneumonia: Inpatient med surg Supplemental oxygen therapy as needed to titrate spo2>=92% Serial lactic acid 1.4 Procalcitonin level 0.14 MRSA screening negative, discontinue Vancomycin Blood culture, no growth to date cbc w/ auto diff in the morning to trend WBC Continue Zosyn NS@100cc/hr, consider saline lock once appetite improves Tylenol DuoNEB Robitussin DM Physical therapist recommend SNF placement upon stabilization 2. Essential hypertension: Amlodipine Ramipril or other ELEANOR-i/ARB 3. Hyperlipidemia: Lipitor GI ppx: not currently indicated DVT ppx: Lovenox Code status: Full Prognosis: Stable Disposition: inpatient med surg; SNF Time Spent With Patient Time: Total time spent is greater than 50% in coordination of care (as documented) at patient's floor/unit and/or counseling patient: Subsequent: Total time with patient: 35 - 49 minutes QUALITY Stroke Symptom Onset Unknown: No VTE Deep Vein Thrombosis/Pulmonary Embolism Present on Admission: No
[2022-07-19] MEDS: ATORVASTATIN 40 MG TABLET PO SCH (21:18)
[2022-07-19] MEDS: SENNOSIDES 1 TABLET PO SCH (21:19)
[2022-07-20] MEDS: 0.9 % SODIUM CHLORIDE 1,000 ML IV SCH ×4 (05:39→18:44)
[2022-07-20] MEDS: PIPERACILLIN SODIUM/TAZOBACTAM 3.375 GM in DEXTROSE 5% IN WATER 50 ML IV SCH ×3 (05:39→18:34)
[2022-07-20] MEDS: 0.9 % SODIUM CHLORIDE 10 ML SYRINGE IV SCH ×3 (05:39→21:01)
[2022-07-20 07:16] LABS: Basophils # (Auto) 0.02 K/mcL (0.00-0.30); Basophils % (Auto) 0.2 % (0.0-2.0); Eosinophils # (Auto) 0.04 K/mcL (0.00-0.70); Eosinophils % (Auto) 0.3 % (0.0-7.0); Hematocrit 38.4 % (40.1-51.0); Hemoglobin 12.8 g/dL (13.7-17.5); Lymphocytes # (Auto) 0.73 K/mcL (1.50-4.80); Lymphocytes % (Auto) 5.9 % (15.5-49.0); Mean Corpuscular HGB Conc 33.3 g/dL (31.0-36.0); Mean Platelet Volume 11.4 fL (8.8-12.5); Monocytes # (Auto) 0.54 K/mcL (0.10-0.90); Monocytes % (Auto) 4.3 % (1.0-12.0); Neutrophils % (Auto) 88.7 % (38.0-78.0); Platelet Count 192 K/mcL (140-440); Red Cell Distribution Width 13.2 % (11.5-14.5); WBC 12.5 K/mcL (4.5-11.0)
[2022-07-20 08:03] LABS: ALT/SGPT 12 U/L (<40); AST/SGOT 14 U/L (<40); Albumin 2.5 gm/dL (3.2-5.2); Albumin/Globulin Ratio 0.9 (1.0-2.3); Alkaline Phosphatase 69 U/L (39-117); Bilirubin,Total 0.9 mg/dL (0.1-1.0); Blood Urea Nitrogen 12 mg/dL (8-23); Calcium 7.8 mg/dL (8.6-10.4); Carbon Dioxide 22 mmol/L (22-30); Chloride 108 mmol/L (96-108); Globulin 2.9 gm/dL (2.2-3.7); Glomerular Filtration Rate 81; Glucose 99 mg/dL (70-105)
--- NOTE | 2022-07-20 10:49 | Internal Med Progress Note ---
SUBJECTIVE Subjective Patient information: Note initiated : 07/20/22 at 10:47 am Service Date, if different from initiated Date: [] Patient: Juan Cantrell a 86 y/o M admitted on 07/17/22 for AMS. Chief Complaint: [] Interval history: Mr. Cantrell is a 86 year old M history of essential hypertensions and dyslipidemia, presenting with general weakness. Patient was hospitalized in our facility for COVID-pneumonia and was eventually discharged a week ago with home health service. Home health service check on the patient earlier today and saw the patient's did not appear to be well and prompted him to come to the ED for further evaluations. Patient is coming of general weakness, productive cough with yellow sputum, chills, and lack of appetite. He denies having any focal pain. He denies having fever. He denies having shortness of breath at the moment. Vital signs within normal limits and he is tolerating room air. Labs significant for leukocytosis with WBC 14.5. Lactic acid, procalcitonin pending. Chest x-ray showing new onset left lower lobe pneumonia. Admission request is called for healthcare associated pneumonia. 07/18: Patient remains on room air. Patient remained afebrile overnight. WBC down from 14.5 at time of admission to 12.1 this morning. MRSA screening negative. Blood culture no growth to date. Supplemental oxygen therapy as needed. Discontinue vancomycin, continue Zosyn while waiting for culture result. Continue normal saline at 100 cc/h. Physical therapist recommend SNF placement upon stabilization. 07/19: Low grade fever Tmax 37.3 this morning. On room air. Patient finished maybe half of his lunch to provide it. WBC 12.3 this morning. Blood culture no growth to date. Patient denies shortness of breath, cough, or wheezing. He denies fever, chills, or diaphoresis. He still has a poor appetite and is still commenting of general weakness. Supplemental oxygen therapy as needed. Continue Zosyn while waiting for culture results. Continue normal saline at 100 cc/h, consider to saline lock the patient once his appetite improved. Pending SNF placement. 07/20: Afebrile overnight. On room air. WBC 12.5 this morning. Blood culture no growth to date. Patient is sleepy but arousable. Patient has a poor appetite and he has not eaten any of the breakfast provided. Continue Zosyn while waiting for culture results. Continue normal saline at 100 cc/h, consider to saline lock the patient once his appetite improved. Pending SNF placement. Constitutional Vitals: Vital Signs Temp Pulse Resp BP Pulse Ox O2 Del Method 36.6 C 75 20 131/54 93 Room Air 07/20/22 04:31 07/20/22 04:31 07/20/22 04:31 07/20/22 04:31 07/20/22 04:31 07/20/22 04:31 Period Temp Pulse Resp BP Sys/Devine Pulse Ox O2 Del Method O2 Flow Rate Last 24 Hr 36.6 C-36.8 C 50-75 14-24 128-156/53-72 92-98 Room Air-Room Air Intake and Output 07/19/22 07/20/22 07/20/22 19:59 03:59 11:59 Intake Total 6382 115 5625 Output Total 300 Balance 6951 715 5757 Weight 74.752 kg Intake & Output: Intake & Output 07/19/22 07/20/22 07/20/22 19:59 03:59 11:59 Intake Total 9986 658 1347 Output Total 300 Balance 2870 178 3934 Weight 74.752 kg Intake: IV 1100 50 1000 Sodium Chloride 0.9% 1,000 ml @ 1000 1000 100 mls/hr IV .Q10H [facility] Rx#: [id number] Zosyn 3.375 gm In Dextrose 5% 100 50 in Water 50 ml @ 100 mls/hr IV Q6H [facility] Rx#:[id number] Oral 240 350 400 Output: Void Amount 300 Other: Meal Dinner Percent of Meal Consumed 0% Stool Size Small Smear Stool Color Brown Stool Consistency Loose Loose # Voids 1 1 1 # Bowel Movements 1 # of times incontinent of 1 Bowels Exam: Lethargic Head Head exam: Present atraumatic and normal inspection Eye Eye exam: Present normal appearance ENT ENT exam: Present mucous membranes moist, normal exam and normal external ear exam Neck Neck exam: Present normal inspection Respiratory Respiratory exam: Present normal respiratory exam Cardiovascular Cardiovascular exam: Present normal rate and rhythm GI/Abdominal GI/Abdominal exam: Present normal bowel sounds Back Exam Back exam: Present normal inspection Neurological Exam Additional comments: Lethargic Skin Skin exam: Present intact and warm OBJ DATA Labs 07/20/22 06:16 02/26/23 06:16 Labs: Abnormal Lab Results 07/20/22 07/20/22 07/19/22 06:16 06:16 06:46 WBC 12.5 H RBC 4.00 L Hgb 12.8 L Hct 38.4 L Immature Gran % (Auto) 0.6 H Neut % (Auto) 88.7 H Lymph % (Auto) 5.9 L Lymph # (Auto) 0.73 L Shelby # (Auto) Immature Gran # 0.07 H Absolute Neutrophils 11.07 H Chloride 110 H Carbon Dioxide 21 L POC BUN Glucose POC Glucose Calcium 7.8 L 7.9 L Total Bilirubin 1.2 H Direct Bilirubin Total Protein 5.4 L 5.5 L Albumin 2.5 L 2.4 L Albumin/Globulin Ratio 0.9 L 0.8 L Procalcitonin Urine Appearance Urine Protein Urine Urobilinogen Urine Mucus 07/19/22 07/18/22 07/18/22 06:46 09:00 05:15 WBC 12.3 H RBC 3.98 L Hgb 12.9 L Hct 38.2 L Immature Gran % (Auto) Neut % (Auto) 87.4 H Lymph % (Auto) 6.9 L Lymph # (Auto) 0.85 L Shelby # (Auto) Immature Gran # Absolute Neutrophils 10.77 H Chloride Carbon Dioxide POC BUN Glucose 110 H POC Glucose Calcium 8.2 L Total Bilirubin 1.3 H Direct Bilirubin Total Protein 5.8 L Albumin 2.7 L Albumin/Globulin Ratio 0.9 L Procalcitonin Urine Appearance Cloudy A Urine Protein 30 A Urine Urobilinogen 4.0 A Urine Mucus Few A 07/18/22 07/17/22 07/17/22 05:15 20:46 14:09 WBC 12.1 H RBC 4.24 L Hgb Hct Immature Gran % (Auto) Neut % (Auto) 87.3 H Lymph % (Auto) 6.0 L Lymph # (Auto) 0.72 L Shelby # (Auto) Immature Gran # Absolute Neutrophils 10.55 H Chloride Carbon Dioxide POC BUN 26 H Glucose POC Glucose 110 H Calcium Total Bilirubin Direct Bilirubin Total Protein Albumin Albumin/Globulin Ratio Procalcitonin 0.14 H Urine Appearance Urine Protein Urine Urobilinogen Urine Mucus 07/17/22 07/17/22 14:06 14:05 WBC 14.5 H RBC 4.62 L Hgb Hct Immature Gran % (Auto) Neut % (Auto) 88.1 H Lymph % (Auto) 4.8 L Lymph # (Auto) 0.70 L Shelby # (Auto) 0.92 H Immature Gran # 0.07 H Absolute Neutrophils 12.75 H Chloride Carbon Dioxide POC BUN Glucose POC Glucose Calcium Total Bilirubin 1.3 H Direct Bilirubin 0.5 H Total Protein Albumin Albumin/Globulin Ratio Procalcitonin Urine Appearance Urine Protein Urine Urobilinogen Urine Mucus Meds: Medications Albuterol/Ipratropium (Ipratropium/Albuterol 3 Ml Ampul.Neb) 3 ml NEB Q4HRT PRN PRN Reason: Wheezing Amlodipine Besylate (Amlodipine 5 Mg Tablet) 2.5 mg PO DAILY [facility] Aspirin (Aspirin 81 Mg Tab.Chew) 81 mg PO DAILY [facility] Atorvastatin Calcium (Atorvastatin 40 Mg Tablet) 40 mg PO QHS [facility] Last Admin: 07/19/22 21:18 Dose: 40 mg Docusate Sodium (Docusate Sodium 100 Mg Capsule) 100 mg PO BID [facility] Last Admin: 07/19/22 21:19 Dose: Not Given Enoxaparin Sodium (Enoxaparin 40 Mg/0.4 Ml Syringe) 40 mg SQ DAILY [facility] Last Admin: 07/19/22 12:56 Dose: 40 mg Guaifenesin (Guaifenesin/Dextromethorphan 5ml Ud Cup) 10 ml PO Q4HP PRN PRN Reason: Cough Last Admin: 07/18/22 04:05 Dose: 10 ml Sodium Chloride (Sodium Chloride 0.9%) 1,000 mls @ 100 mls/hr IV .Q10H [facility] Last Admin: 07/20/22 05:39 Dose: 100 mls/hr Piperacillin Sod/Tazobactam (Sod 3.375 gm/ Dextrose) 50 mls @ 100 mls/hr IV Q6H [facility]; Protocol Last Admin: 07/20/22 05:39 Dose: 100 mls/hr Lisinopril (Lisinopril 10 Mg Tablet) 10 mg PO DAILY [facility] Ondansetron HCl (Ondansetron 4 Mg/2 Ml Vial) 4 mg IV Q6HP PRN PRN Reason: Nausea And Vomiting Senna (Sennosides 1 Tablet) 2 tab PO HS [facility] Last Admin: 07/19/22 21:19 Dose: Not Given Sodium Chloride (0.9 % Sodium Chloride 10 Ml Syringe) 10 ml IV Q8 [facility] Last Admin: 07/20/22 05:39 Dose: Not Given A/P Assessment and plan (1) Hospital-acquired pneumonia: Status: Acute (2) Hyperlipidemia: Status: Chronic (3) Essential (primary) hypertension: Status: Chronic Narrative A/P Narrative: Assessment and Plans: 1. Hospital acquired pneumonia: Inpatient med surg Supplemental oxygen therapy as needed to titrate spo2>=92% Serial lactic acid 1.4 Procalcitonin level 0.14 MRSA screening negative, discontinue Vancomycin Blood culture, no growth to date cbc w/ auto diff in the morning to trend WBC Continue Zosyn NS@100cc/hr, consider saline lock once appetite improves Tylenol DuoNEB Robitussin DM Physical therapist recommend SNF placement upon stabilization 2. Essential hypertension: Amlodipine Ramipril or other ELEANOR-i/ARB 3. Hyperlipidemia: Lipitor GI ppx: not currently indicated DVT ppx: Lovenox Code status: Full Prognosis: Stable Disposition: inpatient med surg; SNF Time Spent With Patient Time: Total time spent is greater than 50% in coordination of care (as documented) at patient's floor/unit and/or counseling patient: Subsequent: Total time with patient: 35 - 49 minutes QUALITY Stroke Symptom Onset Unknown: No VTE Deep Vein Thrombosis/Pulmonary Embolism Present on Admission: No
[2022-07-20] MEDS: ASPIRIN 81 MG TAB.CHEW PO SCH (11:31)
[2022-07-20] MEDS: LISINOPRIL 10 MG TABLET PO SCH (11:31)
[2022-07-20] MEDS: ENOXAPARIN 40 MG/0.4 ML SYRINGE SQ SCH (11:31)
[2022-07-20] MEDS: amLODIPine 5 MG TABLET PO SCH (11:31)
[2022-07-20] MEDS: DOCUSATE SODIUM 100 MG CAPSULE PO SCH ×2 (11:35→21:01)
[2022-07-20] MEDS: ATORVASTATIN 40 MG TABLET PO SCH (21:00)
[2022-07-20] MEDS: SENNOSIDES 1 TABLET PO SCH (21:02)
[2022-07-21] MEDS: PIPERACILLIN SODIUM/TAZOBACTAM 3.375 GM in DEXTROSE 5% IN WATER 50 ML IV SCH ×3 (02:05→12:41)
[2022-07-21] MEDS: 0.9 % SODIUM CHLORIDE 10 ML SYRINGE IV SCH ×2 (04:58→13:52)
[2022-07-21] MEDS: 0.9 % SODIUM CHLORIDE 1,000 ML IV SCH (04:58)
[2022-07-21] MEDS ORDERED: DOXYCYCLINE HYCLATE 100 MG TABLET.ORL PO SCH (09:00)
[2022-07-21] MEDS: ASPIRIN 81 MG TAB.CHEW PO SCH (09:47)
[2022-07-21] MEDS: amLODIPine 5 MG TABLET PO SCH (09:47)
[2022-07-21] MEDS: LISINOPRIL 10 MG TABLET PO SCH (09:47)
[2022-07-21] MEDS: DOCUSATE SODIUM 100 MG CAPSULE PO SCH (09:48)
[2022-07-21] MEDS: ENOXAPARIN 40 MG/0.4 ML SYRINGE SQ SCH (09:48)
--- NOTE | 2022-07-21 12:33 | Internal Med Progress Note ---
SUBJECTIVE Subjective Patient information: Note initiated : 07/21/22 at 12:16 pm Service Date, if different from initiated Date: [] Patient: Juan Cantrell 86 y/o M admitted on 07/17/22 for AMS. Chief Complaint: [] Interval history: 86 yo male with dementia, HTN, recent COVID 19. He has recently been in rehab after his COVID Dx but did not significantly improve. He returned to the hospital after only a few days at home. He presented with cough productive of yellow green sputum, fever, chills. Workup in the ER notable for WBC 14, CXR with LLL infiltrate. He was admitted and placed on IVF and Abx. Jul 21, blood Cx NGTD. He is on Zosyn. Doxycycline is added in light of recent COVID. IVF are stopped. Oral intake is marginal. I and Social Work had a lengthy discussion with his regarding goals of care and feeding. She understands that diminishing oral intake is a hallmark of progressive end stage dementia. She agrees that no feeding tube should be inserted and that whatever oral intake he is able to sustain will determine his outcome. She notes she is no longer able to care for him at home and placement will be sought. Code status is changed to DNR. Constitutional Vitals: Vital Signs Temp Pulse Resp BP Pulse Ox O2 Del Method 99.5 F H 68 22 149/78 92 Room Air 07/21/22 08:00 07/21/22 08:00 07/21/22 08:00 07/21/22 08:00 07/21/22 08:00 07/21/22 08:00 Period Temp Pulse Resp BP Sys/Devine Pulse Ox O2 Del Method O2 Flow Rate Last 24 Hr 98.0 F-99.5 F 68-82 - 149-184/78-88 92-95 Room Air-Room Air Intake and Output 07/21/22 07/21/22 07/21/22 03:59 11:59 19:59 Intake Total 270 1200 Output Total 450 225 Balance -180 975 Weight 76.884 kg Intake & Output: Intake & Output 07/21/22 07/21/22 07/21/22 03:59 11:59 19:59 Intake Total 270 1200 Output Total 450 225 Balance -180 975 Weight 76.884 kg Intake: Nourishment/Supplement quantity 120 (ml) IV 50 1050 Sodium Chloride 0.9% 1,000 ml @ 1000 100 mls/hr IV .Q10H [facility] Rx#: [id number] Zosyn 3.375 gm In Dextrose 5% 50 50 in Water 50 ml @ 100 mls/hr IV Q6H [facility] Rx#:[id number] Oral 100 150 Output: Void Amount 450 225 Other: Percent of Meal Consumed 0% Feeding Ability Total Assistance Nourishment/Supplement name Ensure Urine Appearance Clear Urine Color Yellow Yellow Urine Odor Strong Normal Stool Size Moderate Small Stool Color Brown Brown Stool Consistency Liquid Soft Loose # Bowel Movements 1 # of times incontinent of 1 Bowels General appearance: average body habitus and no acute distress Head Head exam: Present atraumatic Respiratory Respiratory exam: Present normal respiratory exam Cardiovascular Cardiovascular exam: Present normal rate and rhythm GI/Abdominal GI/Abdominal exam: Present normal bowel sounds and soft; Absent distended Neurological Exam Neurological exam: Present CN II-XII intact OBJ DATA Labs 07/20/22 06:16 07/20/22 06:16 Labs: Abnormal Lab Results 07/20/22 07/20/22 07/19/22 06:16 06:16 06:46 WBC 12.5 H RBC 4.00 L Hgb 12.8 L Hct 38.4 L Immature Gran % (Auto) 0.6 H Neut % (Auto) 88.7 H Lymph % (Auto) 5.9 L Lymph # (Auto) 0.73 L Immature Gran # 0.07 H Absolute Neutrophils 11.07 H Chloride 110 H Carbon Dioxide 21 L Calcium 7.8 L 7.9 L Total Bilirubin 1.2 H Total Protein 5.4 L 5.5 L Albumin 2.5 L 2.4 L Albumin/Globulin Ratio 0.9 L 0.8 L 07/19/22 06:46 WBC 12.3 H RBC 3.98 L Hgb 12.9 L Hct 38.2 L Immature Gran % (Auto) Neut % (Auto) 87.4 H Lymph % (Auto) 6.9 L Lymph # (Auto) 0.85 L Immature Gran # Absolute Neutrophils 10.77 H Chloride Carbon Dioxide Calcium Total Bilirubin Total Protein Albumin Albumin/Globulin Ratio Meds: Medications Albuterol/Ipratropium (Ipratropium/Albuterol 3 Ml Ampul.Neb) 3 ml NEB Q4HRT PRN PRN Reason: Wheezing Amlodipine Besylate (Amlodipine 5 Mg Tablet) 2.5 mg PO DAILY [facility] Last Admin: 07/21/22 09:47 Dose: 2.5 mg Aspirin (Aspirin 81 Mg Tab.Chew) 81 mg PO DAILY [facility] Last Admin: 07/21/22 09:47 Dose: 81 mg Atorvastatin Calcium (Atorvastatin 40 Mg Tablet) 40 mg PO QHS [facility] Last Admin: 07/20/22 21:00 Dose: 40 mg Doxycycline Hyclate (Doxycycline Hyclate 100 Mg Tablet.Orl) 100 mg PO BID [facility]; Protocol Last Admin: 07/21/22 09:48 Dose: 100 mg Enoxaparin Sodium (Enoxaparin 40 Mg/0.4 Ml Syringe) 40 mg SQ DAILY [facility] Last Admin: 07/21/22 09:48 Dose: 40 mg Guaifenesin (Guaifenesin/Dextromethorphan 5ml Ud Cup) 10 ml PO Q4HP PRN PRN Reason: Cough Last Admin: 07/18/22 04:05 Dose: 10 ml Piperacillin Sod/Tazobactam (Sod 3.375 gm/ Dextrose) 50 mls @ 100 mls/hr IV Q6H [facility]; Protocol Last Infusion: 07/21/22 06:24 Dose: Infused Lisinopril (Lisinopril 10 Mg Tablet) 10 mg PO DAILY [facility] Last Admin: 07/21/22 09:47 Dose: 10 mg Ondansetron HCl (Ondansetron 4 Mg/2 Ml Vial) 4 mg IV Q6HP PRN PRN Reason: Nausea And Vomiting Sodium Chloride (0.9 % Sodium Chloride 10 Ml Syringe) 10 ml IV Q8 [facility] Last Admin: 07/21/22 04:58 Dose: Not Given A/P Assessment and plan (1) Hospital-acquired pneumonia: Assessment and plan: - continue Zosyn - doxycyline added Jul 21 in light of recent viral pneumonia Status: Acute (2) Age-related cognitive decline: Assessment and plan: - dementia appears to be advancing - no feeding tube per - is aware that diminishing oral intake is a hallmark of advancing dementia - understands comfort measures may be appropriate in the near future. Status: Acute (3) Essential (primary) hypertension: Assessment and plan: - continue amlodipine, lisinopril Status: Chronic (4) Hyperlipidemia: Assessment and plan: - continue atorvastatin Status: Chronic Time Spent With Patient Time: Total time spent is greater than 50% in coordination of care (as documented) at patient's floor/unit and/or counseling patient: QUALITY Stroke Symptom Onset Unknown: No VTE Deep Vein Thrombosis/Pulmonary Embolism Present on Admission: No
--- NOTE | 2022-07-21 13:10 | Discharge Summary ---
Discharge Provider Provider IMPORTANT FOLLOW-UP INFORMATION FOR PCP: Patient information: Note initiated : 07/21/22 at 1:05 pm Service Date, if different from initiated Date: [] Patient: Juan Cantrell 86 y/o M admitted on 07/17/22 for AMS. Chief Complaint: [] Date of admission: 07/17/22 20:02 Discharge date: 07/21/22 Primary care physician: Jose Bates DO Admitting clinician: Masood Gordon Attending physician on admission: Masood Gordon Consults: 07/17/22 Consult to Physician [CONS] Stat Comment: Consulting Provider: Masood Gordon Reason For Exam: Physician to Consult Attending physician on discharge: evgeny middleton md Discharging clinician: evgeny middleton md COURSE Hospital Course Hospital course: 86 yo male with dementia, HTN, recent COVID 19. He has recently been in rehab after his COVID Dx but did not significantly improve. He returned to the hospital after only a few days at home. He presented with cough productive of yellow green sputum, fever, chills. Workup in the ER notable for WBC 14, CXR with LLL infiltrate. He was admitted and placed on IVF and Abx. Jul 21, blood Cx NGTD. He is on Zosyn. Doxycycline is added in light of recent COVID. IVF are stopped. Oral intake is marginal. I and Social Work had a lengthy discussion with his regarding goals of care and feeding. She understands that diminishing oral intake is a hallmark of progressive end stage dementia. She agrees that no feeding tube should be inserted and that whatever oral intake he is able to sustain will determine his outcome. She notes she is no longer able to care for him at home and placement will be sought. Code status is changed to DNR. understands comfort measures may be appropriate in the near future if his rehab is unsuccessful. He is discharged to [facility] Discharge diagnosis: pneumonia Secondary discharge diagnosis: dementia Reason for admission: pneumonia Time Spent with Patient Time attestation: Total time spent providing and/or coordinating discharge services: Time spent: Less than 30 minutes EXAM Constitutional Vitals: Temp Pulse Resp BP Pulse Ox O2 Del Method 97.7 F 68 22 142/73 93 Room Air 07/21/22 12:00 07/21/22 12:00 07/21/22 12:00 07/21/22 12:00 07/21/22 12:00 07/21/22 12:00 General appearance: average body habitus Head Head exam: Present atraumatic ENT ENT exam: Present mucous membranes moist Respiratory Respiratory exam: Present normal respiratory exam Cardiovascular Cardiovascular exam: Present normal rate and rhythm GI/Abdominal GI/Abdominal exam: Present normal bowel sounds and soft; Absent distended Psychiatric Psychiatric exam: Present flat affect Discharge Data Data Completed and Pending Labs on day of discharge: Preliminary micro results at discharge 07/17/22 20:52 Blood Culture - Preliminary Blood 07/17/22 20:46 Blood Culture - Preliminary Blood Discharge Plan Patient/Caregiver Discharge Instructions Activity: increase activity as tolerated Diet: Regular Diet Prescriptions: New doxycycline hyclate 100 mg Tablet 100 mg PO BID 7 Days Qty: 14 0RF amoxicillin-pot clavulanate [Augmentin] 500-125 mg tablet 1 tab PO BID Qty: 10 0RF Continued amlodipine 2.5 mg tablet 2.5 mg PO QDAY Qty: 90 1RF ramipril 5 mg capsule 5 mg PO QDAY Qty: 90 3RF aspirin 81 mg tablet,chewable 81 mg PO QDAY atorvastatin 40 mg tablet 40 mg PO QHS Qty: 90 3RF Follow Up Plan Follow up with: Jose Bates DO [Primary Care Provider] - Patient Disposition: Xfer SNF Rehab Potential: Fair I certify that the patient requires SNF services: Yes Overall status at discharge: patient is not back to baseline Discharge Orders: Discharge Order (Routine); Ordered 07/21/22 Ordered By: Evgeny KEMP VTE Deep Vein Thrombosis/Pulmonary Embolism Present on Admission: No
== END 2022-07-21 15:15 | DRG 195 ==
LOC: ED 13:17 → MEDSUR 20:02
PROVIDERS: ADMIT Internal Medicine; ATTEND Internal Medicine

== ENCOUNTER 2024-06-09 16:06 | Inpatient (IN) ==
[2024-06-09] MEDS ORDERED: IOPAMIDOL 100 ML BOTTLE IV ONE (16:07)
[2024-06-09 16:28] LABS: Basophils # (Auto) 0.01 K/mcL (0.00-0.30); Basophils % (Auto) 0.1 % (0.0-2.0); Eosinophils # (Auto) 0.06 K/mcL (0.00-0.70); Eosinophils % (Auto) 0.7 % (0.0-7.0); Hematocrit 41.3 % (40.1-51.0); Hemoglobin 13.8 g/dL (13.7-17.5); Lymphocytes # (Auto) 0.83 K/mcL (1.50-4.80); Lymphocytes % (Auto) 10.3 % (15.5-49.0); Mean Cell Volume 95.6 fL (80.0-100.0); Mean Corpuscular HGB Conc 33.4 g/dL (31.0-36.0); Mean Platelet Volume 10.1 fL (8.8-12.5); Monocytes # (Auto) 0.46 K/mcL (0.10-0.90); Monocytes % (Auto) 5.7 % (1.0-12.0); Platelet Count 193 K/mcL (140-440); RBC 4.32 M/mcL (4.63-6.08); Red Cell Distribution Width 13.2 % (11.5-14.5); WBC 8.1 K/mcL (4.5-11.0)
[2024-06-09 16:39] LABS: Partial Thromboplastin Time 26.9 sec (20.0-37.0)
[2024-06-09] MEDS: ASPIRIN 81 MG TAB.CHEW CHEWED ONE (17:15)
[2024-06-09 17:59] LABS: ALT/SGPT 8 U/L (<40); AST/SGOT 14 U/L (<40); Albumin 3.9 gm/dL (3.2-5.2); Albumin/Globulin Ratio 1.6 (1.0-2.3); Alkaline Phosphatase 101 U/L (39-117); Bilirubin,Total 0.5 mg/dL (0.1-1.0); Blood Urea Nitrogen 14 mg/dL (8-23); Calcium 9.5 mg/dL (8.6-10.4); Carbon Dioxide 23 mmol/L (22-30); Chloride 104 mmol/L (96-108); Globulin 2.4 gm/dL (2.2-3.7); Glomerular Filtration Rate 67; Glucose 114 mg/dL (70-105); Potassium 4.2 mmol/L (3.3-5.1); Sodium 140 mmol/L (133-145)
[2024-06-09] MEDS: CLOPIDOGREL 300 MG TABLET PO ONE (18:00)
[2024-06-09] MEDS: ATORVASTATIN 40 MG TABLET PO ONE (18:00)
[2024-06-09] MEDS ORDERED: POTASSIUM CHLORIDE 20 MEQ TABLET PO PRN ×2 (19:12)
[2024-06-09] MEDS ORDERED: POTASSIUM CHLORIDE 40 MEQ in DEXTROSE 5% IN WATER 500 ML IV PRN (19:12)
[2024-06-09] MEDS ORDERED: IPRATROPIUM/ALBUTEROL 3 ML AMPUL.NEB NEB PRN (19:12)
[2024-06-09] MEDS ORDERED: POLYETHYLENE GLYCOL 3350 17 GM PACKET PO PRN (19:12)
[2024-06-09] MEDS ORDERED: SENNOSIDES 1 TABLET PO PRN (19:12)
[2024-06-09] MEDS ORDERED: ACETAMINOPHEN 160 MG/5 ML ORAL.SOL PO PRN (19:12)
[2024-06-09] MEDS ORDERED: MAGNESIUM SULFATE 2 GM/50 ML BAG IV PRN (19:12)
[2024-06-09 19:49] LABS: HDL Cholesterol 44 mg/dL (>40); LDL Cholesterol,Calculated 70 mg/dL (<100); Non-HDL Cholesterol 82 mg/dL (<130); Triglycerides 62 mg/dL (<150)
[2024-06-09] MEDS: DOCUSATE SODIUM 100 MG CAPSULE PO SCH (22:42)
[2024-06-09] MEDS: 0.9 % SODIUM CHLORIDE 1,000 ML IV ONE (22:43)
[2024-06-10] MEDS: OLANZapine 5 MG TABLET PO ONE (00:40)
[2024-06-10] MEDS: OLANZapine 2.5 MG TABLET PO ONE (00:46)
[2024-06-10] MEDS: LORazepam 2 MG/ML VIAL ONE ×2 (00:47→12:20)
[2024-06-10] MEDS: LORazepam 2 MG/ML VIAL IV ONE (00:47)
[2024-06-10 03:42] LABS: Appearance,Urine CLEAR (Clear); Bilirubin,Urine Negative (Negative); Color,Urine STRAW; Glucose,Urine (UA) Negative (Negative); Ketones,Urine Negative (Negative); Leukocyte Esterase,Urine Negative /uL (Negative); Nitrate,Urine Negative (Negative); Protein,Urine Negative (Negative); Specific Gravity,Urine 1.013 (1.000-1.035); Urine Blood Negative (Negative); Urine RBC < 1 /hpf (0-3); Urine Squamous Epithelial Cell 0 /hpf (0-4); Urine WBC 0 /hpf (0-4); Urobilinogen,Urine Negative
[2024-06-10 07:19] LABS: ALT/SGPT 8 U/L (<40); AST/SGOT 21 U/L (<40); Albumin 3.8 gm/dL (3.2-5.2); Albumin/Globulin Ratio 1.5 (1.0-2.3); Alkaline Phosphatase 101 U/L (39-117); Bilirubin,Direct 0.4 mg/dL (<0.3); Bilirubin,Total 0.8 mg/dL (0.1-1.0); Blood Urea Nitrogen 10 mg/dL (8-23); Calcium 9.4 mg/dL (8.6-10.4); Carbon Dioxide 20 mmol/L (22-30); Chloride 109 mmol/L (96-108); Globulin 2.5 gm/dL (2.2-3.7); Glomerular Filtration Rate 80; Glucose 103 mg/dL (70-105); Lactate Dehydrogenase 169 U/L (135-225); Phosphorous 2.2 mg/dL (2.5-4.5); Potassium 3.7 mmol/L (3.3-5.1); Sodium 140 mmol/L (133-145); Triglycerides 61 mg/dL (<150); Uric Acid 5.3 mg/dL (2.5-8.0)
[2024-06-10] MEDS: CLOPIDOGREL 75 MG TABLET PO SCH (10:28)
[2024-06-10] MEDS: ASPIRIN 81 MG TAB.CHEW CHEWED SCH (10:28)
[2024-06-10] MEDS: ENOXAPARIN 40 MG/0.4 ML SYRINGE SQ SCH (10:28)
[2024-06-10] MEDS: DONEPEZIL 10 MG TABLET PO SCH (10:28)
[2024-06-10] MEDS: LORazepam 2 MG/ML VIAL IV SCH (11:30)
[2024-06-10] MEDS: MELATONIN 3 MG TABLET PO SCH (19:17)
[2024-06-10] MEDS: QUEtiapine 25 MG TABLET PO SCH (20:54)
[2024-06-10] MEDS: ATORVASTATIN 40 MG TABLET PO SCH (20:54)
[2024-06-11 07:32] LABS: ALT/SGPT 8 U/L (<40); AST/SGOT 25 U/L (<40); Albumin 3.8 gm/dL (3.2-5.2); Albumin/Globulin Ratio 1.4 (1.0-2.3); Alkaline Phosphatase 101 U/L (39-117); Bilirubin,Direct 0.3 mg/dL (<0.3); Bilirubin,Total 0.7 mg/dL (0.1-1.0); Blood Urea Nitrogen 14 mg/dL (8-23); Calcium 9.2 mg/dL (8.6-10.4); Carbon Dioxide 18 mmol/L (22-30); Chloride 104 mmol/L (96-108); Globulin 2.8 gm/dL (2.2-3.7); Glomerular Filtration Rate 80; Glucose 130 mg/dL (70-105); Lactate Dehydrogenase 201 U/L (135-225); Phosphorous 3.3 mg/dL (2.5-4.5); Potassium 4.5 mmol/L (3.3-5.1); Sodium 138 mmol/L (133-145); Triglycerides 49 mg/dL (<150); Uric Acid 5.5 mg/dL (2.5-8.0)
[2024-06-11] MEDS: SODIUM BICARBONATE 650 MG TABLET PO SCH (09:29)
[2024-06-11] MEDS: 0.9 % SODIUM CHLORIDE 500 ML IV ONE (10:53)
[2024-06-11] MEDS: PNEUMOCOCCAL 23-VAL P-SAC VAC 0.5 ML SYRINGE IM ONE (10:58)
[2024-06-11] MEDS: ACETAMINOPHEN 325 MG TABLET PO ONE (17:10)
[2024-06-11] MEDS: ACETAMINOPHEN 325 MG TABLET PO PRN (17:10)
[2024-06-12 06:23] LABS: Blood Urea Nitrogen 20 mg/dL (8-23); Calcium 8.9 mg/dL (8.6-10.4); Carbon Dioxide 23 mmol/L (22-30); Chloride 108 mmol/L (96-108); Glomerular Filtration Rate 80; Glucose 104 mg/dL (70-105); Sodium 142 mmol/L (133-145)
[2024-06-12] MEDS ORDERED: ENALAPRILAT 1.25 MG/ML VIAL IV PRN (07:51)
[2024-06-12] MEDS: amLODIPine 5 MG TABLET PO SCH (08:12)
[2024-06-12] MEDS: LIDOCAINE 4% TOP PATCH TOPICAL PRN (10:54)
[2024-06-12] MEDS: ONDANSETRON 4 MG/2 ML VIAL IV PRN (10:54)
[2024-06-12] MEDS: RAMIPRIL 2.5 MG CAPSULE PO SCH (10:55)
[2024-06-12] MEDS: METOCLOPRAMIDE 10 MG/2 ML VIAL IV PRN (12:03)
[2024-06-13] MEDS ORDERED: 0.9 % SODIUM CHLORIDE 10 ML SYRINGE IV PRN (11:34)
[2024-06-13] MEDS: 0.9 % SODIUM CHLORIDE 1,000 ML IV ONE (17:27)
[2024-06-13] MEDS ORDERED: 0.9 % SODIUM CHLORIDE 1,000 ML IV SCH (17:30)
[2024-06-13] MEDS ORDERED: 0.9 % SODIUM CHLORIDE 10 ML SYRINGE IV SCH (21:00)
[2024-06-14] MEDS: 0.9 % SODIUM CHLORIDE 10 ML SYRINGE IV SCH (15:45)
[2024-06-15 11:24] VITALS: TEMP 97.2; O2SAT 97
== END 2024-06-15 14:09 | DRG 556 ==
LOC: ED 16:06 → ICU 16:06 → MEDSUR 06-13 17:08
PROVIDERS: ADMIT Internal Medicine; ATTEND Student in an Organized Health Care Education/Training Program